=== PATIENT | male | born 1980 | race Caucasian/White ===

== ENCOUNTER 2016-11-19 19:00 | Inpatient (IN) | payer OTHER ==
[2016-11-19 19:17] VITALS: BMI 21.2
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
[2016-11-19] MEDS ORDERED: NICOTINE POLACRILEX 2 MG GUM BC PRN (21:04)
[2016-11-19] MEDS ORDERED: ACETAMINOPHEN 325 MG TABLET (FP) PO PRN (21:04)
[2016-11-19] MEDS ORDERED: diphenhydrAMINE HCL 50 MG CAPSULE PO PRN (21:04)
[2016-11-19] MEDS ORDERED: guaiFENesin/D-METHORPHAN HB 10 ML UNIT-DOSE CUPS PO PRN (21:04)
[2016-11-19] MEDS ORDERED: MENTHOL/PHENOL 1 EACH UD MM PRN (21:04)
[2016-11-19] MEDS ORDERED: MAGNESIUM CITRATE 300 ML BOTTLE PO PRN (21:04)
[2016-11-19] MEDS ORDERED: LOPERAMIDE HCL 2 MG CAPSULE PO PRN (21:04)
[2016-11-19] MEDS ORDERED: MAGNESIUM HYDROX 2400MG/30ML ORAL SUSPENSION 30 ML CUP PO PRN (21:04)
[2016-11-19] MEDS ORDERED: CYCLOBENZAPRINE HCL 10 MG TABLET (FP) PO PRN (21:09)
[2016-11-19] MEDS ORDERED: BACITRACIN 0.9 GM PACKET TP ONE (21:09)
[2016-11-19] MEDS ORDERED: TUBERCULIN PPD 5 TU/0.1ML VIAL ID ONE (22:35)
[2016-11-19] MEDS: RANITIDINE HCL 150 MG TABLET (FP) PO SCH (22:37)
[2016-11-19] MEDS: THIAMINE HCL 100 MG TABLET (FP) PO SCH (22:37)
[2016-11-19 23:37] LABS: URINE APPEARANCE CLEAR; URINE BILIRUBIN NEGATIVE (NEGATIVE); URINE BLOOD NEGATIVE (NEGATIVE); URINE COLOR LTYELLOW; URINE GLUCOSE (UA) NEGATIVE (NEGATIVE); URINE KETONE NEGATIVE (NEGATIVE); URINE LEUK ESTERASE NEGATIVE (NEGATIVE); URINE NITRITE NEGATIVE (NEGATIVE); URINE PROTEIN NEGATIVE (NEGATIVE); URINE UROBILINOGEN NEGATIVE E.U./dl (0.2-1.0)
[2016-11-20] MEDS ORDERED: METHADONE HCL 10 MG TABLET PO SCH (07:30)
[2016-11-20] MEDS ORDERED: METHADONE HCL 5 MG TABLET ONE (09:26)
[2016-11-20] MEDS ORDERED: METHADONE HCL 40 MG DISPERSABLE TABLET ONE (09:26)
[2016-11-20] MEDS: METHADONE 40 MG, METHADONE 15 MG PO SCH (09:27)
[2016-11-20] MEDS: NICOTINE 21 MG/24 HOURS TOPICAL PATCH TD SCH ×2 (10:59)
[2016-11-20] MEDS: LIDOCAINE 5% TOPICAL PATCH TP SCH ×2 (10:59)
[2016-11-20] MEDS: RANITIDINE HCL 150 MG TABLET (FP) PO SCH ×3 (10:59→21:42)
[2016-11-20] MEDS: PRENATAL VITAMINS W/ FOLIC ACID TABLET (FP) PO SCH ×2 (10:59)
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
[2016-11-20] MEDS ORDERED: GABAPENTIN 100 MG CAPSULE (FP) PO ONE (11:45)
[2016-11-20 13:31] LABS: MCH 32.7 pg (25.7-33.7); MCHC 33.4 g/dl (32.0-35.9); MEAN CELL VOLUME 97.9 fl (80-96); PLATELET COUNT 161 K/MM3 (134-434); RDW 13.1 % (11.9-15.9); WHITE BLOOD COUNT 3.3 K/mm3 (4.0-10.0)
[2016-11-20 14:05] LABS: ALBUMIN 3.7 g/dl (3.4-5.0); ALK PHOS 65 U/L (45-117); ANION GAP 9 (8-16); BILIRUBIN,TOTAL 0.1 mg/dL (0.2-1.0); CALCIUM 9.1 mg/dL (8.5-10.1); CO2 29 mmol/L (21-32); GLUCOSE,RANDOM 57 mg/dL (74-106); SGOT/AST 14 U/L (15-37); SGPT/ALT 17 U/L (12-78); TOT PROT 7.2 g/dl (6.4-8.2)
[2016-11-20] MEDS: GABAPENTIN 300 MG CAPSULE (FP) PO SCH ×2 (14:18→21:42)
[2016-11-20] MEDS: risperiDONE 1 MG TABLET (FP) PO SCH (21:42)
[2016-11-20] MEDS: THIAMINE HCL 100 MG TABLET (FP) PO SCH (21:42)
[2016-11-20] MEDS: traZODone HCL 50 MG TABLET (FP) PO SCH (21:42)
[2016-11-21] MEDS ORDERED: METHADONE HCL 40 MG DISPERSABLE TABLET ONE (03:10)
[2016-11-21] MEDS ORDERED: METHADONE HCL 5 MG TABLET ONE (03:10)
[2016-11-21] MEDS: METHADONE 40 MG, METHADONE 15 MG PO SCH (06:44)
[2016-11-21] MEDS: GABAPENTIN 300 MG CAPSULE (FP) PO SCH ×3 (06:44→21:40)
[2016-11-21] MEDS: LIDOCAINE 5% TOPICAL PATCH TP SCH (09:30)
[2016-11-21] MEDS: risperiDONE 1 MG TABLET (FP) PO SCH ×2 (09:31→21:40)
[2016-11-21] MEDS: RANITIDINE HCL 150 MG TABLET (FP) PO SCH ×2 (09:31→21:39)
[2016-11-21] MEDS: NICOTINE 21 MG/24 HOURS TOPICAL PATCH TD SCH (09:31)
[2016-11-21] MEDS: PRENATAL VITAMINS W/ FOLIC ACID TABLET (FP) PO SCH (09:32)
[2016-11-21] MEDS: MAG HYDROX/AL HYDROX/SIMETH 30 ML UNIT-DOSE CUP PO PRN (19:23)
[2016-11-21] MEDS: THIAMINE HCL 100 MG TABLET (FP) PO SCH (21:39)
[2016-11-21] MEDS: traZODone HCL 50 MG TABLET (FP) PO SCH (21:39)
[2016-11-22] MEDS ORDERED: METHADONE HCL 5 MG TABLET ONE (03:11)
[2016-11-22] MEDS ORDERED: METHADONE HCL 40 MG DISPERSABLE TABLET ONE (03:12)
[2016-11-22] MEDS: METHADONE 40 MG, METHADONE 15 MG PO SCH (06:45)
[2016-11-22] MEDS: GABAPENTIN 300 MG CAPSULE (FP) PO SCH ×3 (06:45→21:27)
[2016-11-22] MEDS: PRENATAL VITAMINS W/ FOLIC ACID TABLET (FP) PO SCH (09:52)
[2016-11-22] MEDS: risperiDONE 1 MG TABLET (FP) PO SCH ×2 (09:52→21:27)
[2016-11-22] MEDS: RANITIDINE HCL 150 MG TABLET (FP) PO SCH ×2 (09:52→21:27)
[2016-11-22] MEDS: NICOTINE 21 MG/24 HOURS TOPICAL PATCH TD SCH (09:52)
[2016-11-22] MEDS: LIDOCAINE 5% TOPICAL PATCH TP SCH (09:54)
[2016-11-22] MEDS: MAG HYDROX/AL HYDROX/SIMETH 30 ML UNIT-DOSE CUP PO PRN (19:00)
[2016-11-22] MEDS: THIAMINE HCL 100 MG TABLET (FP) PO SCH (21:26)
[2016-11-22] MEDS: traZODone HCL 50 MG TABLET (FP) PO SCH (21:27)
[2016-11-23] MEDS ORDERED: METHADONE HCL 5 MG TABLET ONE (05:41)
[2016-11-23] MEDS ORDERED: METHADONE HCL 40 MG DISPERSABLE TABLET ONE (05:42)
[2016-11-23] MEDS: GABAPENTIN 300 MG CAPSULE (FP) PO SCH ×3 (06:13→21:28)
[2016-11-23] MEDS: METHADONE 40 MG, METHADONE 15 MG PO SCH (06:13)
[2016-11-23] MEDS: risperiDONE 1 MG TABLET (FP) PO SCH ×2 (09:50→21:29)
[2016-11-23] MEDS: PRENATAL VITAMINS W/ FOLIC ACID TABLET (FP) PO SCH (09:50)
[2016-11-23] MEDS: RANITIDINE HCL 150 MG TABLET (FP) PO SCH ×2 (09:50→21:50)
[2016-11-23] MEDS: LIDOCAINE 5% TOPICAL PATCH TP SCH (09:50)
[2016-11-23] MEDS: NICOTINE 21 MG/24 HOURS TOPICAL PATCH TD SCH (09:50)
--- NOTE | 2016-11-23 14:12 | EKG ---
Test Reason : Blood Pressure : / mmHG Vent. Rate : 050 BPM Atrial Rate : 050 BPM P-R Int : 140 ms QRS Dur : 106 ms QT Int : 464 ms P-R-T Axes : 061 074 060 degrees QTc Int : 423 ms SINUS BRADYCARDIA OTHERWISE NORMAL ECG NO PREVIOUS ECGS AVAILABLE Confirmed by ZENA FISHER MD ([id number]) on 11/23/2016 2:11:46 PM Referred By: Confirmed By:ZENA FISHER MD
[2016-11-23] MEDS: traZODone HCL 50 MG TABLET (FP) PO SCH (21:28)
[2016-11-23] MEDS: THIAMINE HCL 100 MG TABLET (FP) PO SCH (21:28)
[2016-11-24] MEDS ORDERED: METHADONE HCL 40 MG DISPERSABLE TABLET ONE (03:08)
[2016-11-24] MEDS ORDERED: METHADONE HCL 5 MG TABLET ONE (03:08)
[2016-11-24] MEDS: METHADONE 40 MG, METHADONE 15 MG PO SCH (06:08)
[2016-11-24] MEDS: GABAPENTIN 300 MG CAPSULE (FP) PO SCH ×3 (06:08→21:31)
[2016-11-24] MEDS: PRENATAL VITAMINS W/ FOLIC ACID TABLET (FP) PO SCH (09:46)
[2016-11-24] MEDS: NICOTINE 21 MG/24 HOURS TOPICAL PATCH TD SCH (09:46)
[2016-11-24] MEDS: LIDOCAINE 5% TOPICAL PATCH TP SCH (09:46)
[2016-11-24] MEDS: RANITIDINE HCL 150 MG TABLET (FP) PO SCH ×2 (09:46→21:31)
[2016-11-24] MEDS: risperiDONE 1 MG TABLET (FP) PO SCH ×2 (09:47→21:31)
--- NOTE | 2016-11-24 15:23 | PN ---
Psychiatric Progress Note Vital Signs: Vital Signs Period Temp Pulse Resp BP Sys/Wilkinson Pulse Ox Last 24 Hr 98.2 F 70 18-18 116/72 Date of Session: 11/24/16 Chief Complaint:: "sedation" HPI: Patient is addressing opioid, cocaine, nicotine and alcohol comomrbid persistent mood disorder ROS: WNL Current Medications: Active Medications Generic Name Dose Route Start Last Admin Trade Name Freq PRN Reason Stop Dose Admin Acetaminophen 650 mg 11/19/16 21:04 11/21/16 13:12 Tylenol - PO 650 mg Q4H PRN Administration PAIN Al Hydroxide/Mg Hydroxide 30 ml 11/19/16 21:04 11/22/16 19:00 Mylanta Oral Suspension - PO 30 ml Q6H PRN Administration DYSPEPSIA Bupropion HCl 150 mg 11/21/16 10:00 11/24/16 09:47 Wellbutrin Xl - PO Not Given DAILY SKYE Cyclobenzaprine HCl 10 mg 11/19/16 21:09 Flexeril - PO TID PRN MUSCLE SPASMS Diphenhydramine HCl 50 mg 11/19/16 21:04 11/19/16 22:37 Benadryl - PO 50 mg HSMR1 PRN Administration INSOMNIA Eucalyptus/Menthol/Phenol/Sorbitol 1 each 11/19/16 21:04 Cepastat Lozenge - MM Q4H PRN SORE THROAT Gabapentin 300 mg 11/20/16 14:00 11/24/16 14:12 Neurontin - PO Not Given TID SKYE Guaifenesin 10 ml 11/19/16 21:04 Robitussin Dm - PO Q6H PRN COUGH Ibuprofen 400 mg 11/19/16 21:04 Motrin - PO Q6H PRN SEVERE PAIN Lidocaine 1 patch 11/20/16 10:00 11/24/16 09:46 Lidoderm Patch - TP 1 patch DAILY SKEY Administration Loperamide HCl 4 mg 11/19/16 21:04 Imodium - PO Q6H PRN DIARRHEA Magnesium Citrate 300 ml 11/19/16 21:04 Citroma - PO Q48H PRN CONSTIPATION Magnesium Hydroxide 30 ml 11/19/16 21:04 Milk Of Magnesia - PO DAILY PRN CONSTIPATION Methadone HCl 40 mg/ Methadone 55 mg 11/20/16 07:45 11/24/16 06:08 HCl 15 mg PO 55 mg DAILY@0600 SKYE Administration Nicotine 21 mg 11/20/16 10:00 11/24/16 09:46 Nicoderm Patch - TD 21 mg DAILY SKYE Administration Nicotine Polacrilex 2 mg 11/19/16 21:04 Nicorette Gum - BC Q2H PRN NICOTINE REPLACEMENT RX Multivit/Folic Acid/Iron 1 tab 11/20/16 10:00 11/24/16 09:46 Vitamins ([facility]) - PO 1 tab DAILY SKYE Administration Pseudoephedrine/Triprolidine 1 combo 11/19/16 21:04 Actifed - PO TID PRN NASAL CONGESTION Ranitidine HCl 150 mg 11/19/16 22:00 11/24/16 09:46 Zantac - PO 150 mg BID SKYE Administration Risperidone 1 mg 11/24/16 22:00 Risperdal - PO HS SKYE Thiamine HCl 100 mg 11/19/16 22:00 11/23/16 21:28 Vitamin B1 - PO 100 mg HS SKYE Administration Trazodone HCl 50 mg 11/20/16 22:00 11/23/16 21:28 Desyrel - PO 50 mg HS SKYE Administration Medication(s) Change(s): decrease Risperdal 1 mg po hs, continue the rest. Current Side Effect: No Lab tests ordered: No Lab tests reviewed: Yes Provider note:: As was reported y medical staff patient refusing Neurontin, patient was seen and explored the reasons for rejecting meds, reports that he was taking Gabapentin and does not want Neurontin, educated patient that Neurontin and Gabapentin the same meds he agreed to continue, he also reports he feels sedated after am Risperdal, will d/c am and continue pm, monitor progress as needed. Total face to face time:: 35 Mental Status Exam - Mental Status Exam Alert and Oriented to: Time, Place, Person Cognitive Function: Grossly Intact Patient Appearance: Well Groomed Mood: Sad Affect: Appropriate, Mood Congruent Patient Behavior: Appropriate, Cooperative Speech Pattern: Clear, Appropriate Voice Loudness: Normal Thought Process: Intact, Goal Oriented Thought Disorder: Not Present Hallucinations: Denies Suicidal Ideation: Denies Homicidal Ideation: Denies Insight/Judgement: Fair Sleep: Fair Appetite: Fair Muscle strength/Tone: Normal Gait/Station: Normal Psychiatric Treatment Plan - Problem List (1) Methadone maintenance therapy patient Current Visit: Yes Comment: 55 mg verification pending (2) Nicotine dependence Current Visit: Yes Qualifiers: Nicotine product type: cigarettes Substance use status: in withdrawal Qualified Code(s): F17.213 - Nicotine dependence, cigarettes, with withdrawal (3) Cocaine dependence Current Visit: Yes (4) Opioid dependence Current Visit: Yes (5) Persistent mood [affective] disorder, unspecified Current Visit: Yes
[2016-11-24] MEDS: traZODone HCL 50 MG TABLET (FP) PO SCH (21:31)
[2016-11-24] MEDS: THIAMINE HCL 100 MG TABLET (FP) PO SCH (21:31)
[2016-11-25] MEDS ORDERED: METHADONE HCL 5 MG TABLET ONE (05:38)
[2016-11-25] MEDS ORDERED: METHADONE HCL 40 MG DISPERSABLE TABLET ONE (05:39)
[2016-11-25] MEDS: GABAPENTIN 300 MG CAPSULE (FP) PO SCH ×3 (06:15→21:19)
[2016-11-25] MEDS: METHADONE 40 MG, METHADONE 15 MG PO SCH (06:15)
[2016-11-25] MEDS: NICOTINE 21 MG/24 HOURS TOPICAL PATCH TD SCH (09:53)
[2016-11-25] MEDS: LIDOCAINE 5% TOPICAL PATCH TP SCH (09:53)
[2016-11-25] MEDS: PRENATAL VITAMINS W/ FOLIC ACID TABLET (FP) PO SCH (09:53)
[2016-11-25] MEDS: RANITIDINE HCL 150 MG TABLET (FP) PO SCH ×2 (09:53→21:19)
[2016-11-25] MEDS: P-EPHED 60MG/TRIPROLIDI 2.5MG TABLET PO PRN (09:55)
[2016-11-25] MEDS: MAG HYDROX/AL HYDROX/SIMETH 30 ML UNIT-DOSE CUP PO PRN (20:51)
[2016-11-25] MEDS: traZODone HCL 50 MG TABLET (FP) PO SCH (21:19)
[2016-11-25] MEDS: risperiDONE 1 MG TABLET (FP) PO SCH (21:19)
[2016-11-25] MEDS: THIAMINE HCL 100 MG TABLET (FP) PO SCH (21:19)
[2016-11-26] MEDS ORDERED: METHADONE HCL 40 MG DISPERSABLE TABLET ONE (03:16)
[2016-11-26] MEDS ORDERED: METHADONE HCL 10 MG TABLET ONE (03:16)
[2016-11-26] MEDS ORDERED: METHADONE HCL 10 MG TABLET PO SCH (06:00)
[2016-11-26] MEDS: GABAPENTIN 300 MG CAPSULE (FP) PO SCH ×3 (06:11→21:31)
[2016-11-26] MEDS: METHADONE 40 MG, METHADONE 10 MG PO SCH (06:11)
[2016-11-26] MEDS: LIDOCAINE 5% TOPICAL PATCH TP SCH (09:22)
[2016-11-26] MEDS: RANITIDINE HCL 150 MG TABLET (FP) PO SCH ×2 (09:22→21:31)
[2016-11-26] MEDS: PRENATAL VITAMINS W/ FOLIC ACID TABLET (FP) PO SCH (09:22)
[2016-11-26] MEDS: NICOTINE 21 MG/24 HOURS TOPICAL PATCH TD SCH (09:22)
[2016-11-26] MEDS: traZODone HCL 50 MG TABLET (FP) PO SCH (21:31)
[2016-11-26] MEDS: risperiDONE 1 MG TABLET (FP) PO SCH (21:31)
[2016-11-26] MEDS: THIAMINE HCL 100 MG TABLET (FP) PO SCH (21:31)
[2016-11-26] MEDS: IBUPROFEN 400 MG TABLET (FP) PO PRN (21:55)
[2016-11-27] MEDS ORDERED: METHADONE HCL 40 MG DISPERSABLE TABLET ONE (04:36)
[2016-11-27] MEDS ORDERED: METHADONE HCL 10 MG TABLET ONE (04:37)
[2016-11-27] MEDS: METHADONE 40 MG, METHADONE 10 MG PO SCH (06:12)
[2016-11-27] MEDS: GABAPENTIN 300 MG CAPSULE (FP) PO SCH ×3 (06:12→21:15)
[2016-11-27] MEDS: LIDOCAINE 5% TOPICAL PATCH TP SCH (09:31)
[2016-11-27] MEDS: PRENATAL VITAMINS W/ FOLIC ACID TABLET (FP) PO SCH (09:31)
[2016-11-27] MEDS: RANITIDINE HCL 150 MG TABLET (FP) PO SCH ×2 (09:31→21:15)
[2016-11-27] MEDS: NICOTINE 21 MG/24 HOURS TOPICAL PATCH TD SCH (09:32)
[2016-11-27] MEDS: P-EPHED 60MG/TRIPROLIDI 2.5MG TABLET PO PRN (09:33)
[2016-11-27] MEDS: IBUPROFEN 400 MG TABLET (FP) PO PRN (20:06)
[2016-11-27] MEDS: traZODone HCL 50 MG TABLET (FP) PO SCH (21:15)
[2016-11-27] MEDS: risperiDONE 1 MG TABLET (FP) PO SCH (21:15)
[2016-11-27] MEDS: THIAMINE HCL 100 MG TABLET (FP) PO SCH (21:15)
[2016-11-28] MEDS ORDERED: METHADONE HCL 40 MG DISPERSABLE TABLET ONE (03:21)
[2016-11-28] MEDS ORDERED: METHADONE HCL 10 MG TABLET ONE (03:21)
[2016-11-28] MEDS: METHADONE 40 MG, METHADONE 10 MG PO SCH (06:07)
[2016-11-28] MEDS: GABAPENTIN 300 MG CAPSULE (FP) PO SCH ×3 (06:09→21:30)
[2016-11-28] MEDS: NICOTINE 21 MG/24 HOURS TOPICAL PATCH TD SCH (09:35)
[2016-11-28] MEDS: PRENATAL VITAMINS W/ FOLIC ACID TABLET (FP) PO SCH (09:35)
[2016-11-28] MEDS: RANITIDINE HCL 150 MG TABLET (FP) PO SCH ×2 (09:35→21:30)
[2016-11-28] MEDS: LIDOCAINE 5% TOPICAL PATCH TP SCH (09:36)
[2016-11-28] MEDS: MAG HYDROX/AL HYDROX/SIMETH 30 ML UNIT-DOSE CUP PO PRN (20:42)
[2016-11-28] MEDS: traZODone HCL 50 MG TABLET (FP) PO SCH (21:30)
[2016-11-28] MEDS: THIAMINE HCL 100 MG TABLET (FP) PO SCH (21:30)
[2016-11-28] MEDS: risperiDONE 1 MG TABLET (FP) PO SCH (21:30)
[2016-11-29] MEDS ORDERED: METHADONE HCL 10 MG TABLET ONE (03:33)
[2016-11-29] MEDS ORDERED: METHADONE HCL 40 MG DISPERSABLE TABLET ONE (03:33)
[2016-11-29] MEDS: MAG HYDROX/AL HYDROX/SIMETH 30 ML UNIT-DOSE CUP PO PRN ×2 (06:03→23:34)
[2016-11-29] MEDS: METHADONE 40 MG, METHADONE 10 MG PO SCH (06:03)
[2016-11-29] MEDS: GABAPENTIN 300 MG CAPSULE (FP) PO SCH ×3 (06:03→21:32)
[2016-11-29] MEDS ORDERED: PANTOPRAZOLE 40 MG TABLET (FP) PO ONE (07:07)
[2016-11-29] MEDS ORDERED: LOPERAMIDE HCL 2 MG CAPSULE PO ONE (07:08)
--- NOTE | 2016-11-29 07:20 | PN ---
[facility] Progress Note Note: ASKED TO SEE PT FOR C/O DIARRHEA NOT RELIEVED BY 1 DOSE OF IMODIUM. CLIENT C/O DIARRHEA SI8NCE OVER NIGHT. C/O WATERY DIARRHEA ATLEAST 8 EPISODES OVERNIGHT. REPORTS H/O GASTRITIS WELL NOT RELIEVED BY MYLANTA/ OR ZANTAC. DENIES N/V, FEVER, CHILLS, SOB OR RECENT SICK CONTACTS OR TRAVEL. SEEN LYING IN BED IN MILD DISTRESS A/O X3 ABD- SOFT NT BS X4 HYPERACTIVE Vital Signs Temperature 98.1 F 11/29/16 06:57 Pulse Rate 78 11/29/16 06:57 Respiratory Rate 18 11/29/16 06:57 Blood Pressure 111/68 11/29/16 06:57 O2 Sat by Pulse Oximetry (%) A- DIARRHEA P- STAT DOSE IMODIUM 2 MG NOW C/W WITH IMODIUM ORDERED D/C ZANTAC PROTONIX 40 MG PO NOW THEN DAILY STOOL CX/ O&P CONT TO MONITOR FOR WORSENING/ UNRESOLVED SX'S BRAT DIET
[2016-11-29] MEDS: PRENATAL VITAMINS W/ FOLIC ACID TABLET (FP) PO SCH (09:33)
[2016-11-29] MEDS: LIDOCAINE 5% TOPICAL PATCH TP SCH (09:34)
[2016-11-29] MEDS: NICOTINE 21 MG/24 HOURS TOPICAL PATCH TD SCH (09:35)
[2016-11-29] MEDS: THIAMINE HCL 100 MG TABLET (FP) PO SCH (21:32)
[2016-11-29] MEDS: risperiDONE 1 MG TABLET (FP) PO SCH (21:32)
[2016-11-29] MEDS: traZODone HCL 50 MG TABLET (FP) PO SCH (21:32)
[2016-11-30] MEDS ORDERED: METHADONE HCL 10 MG TABLET ONE (03:14)
[2016-11-30] MEDS ORDERED: METHADONE HCL 40 MG DISPERSABLE TABLET ONE (03:14)
[2016-11-30] MEDS: METHADONE 40 MG, METHADONE 10 MG PO SCH (06:13)
[2016-11-30] MEDS: GABAPENTIN 300 MG CAPSULE (FP) PO SCH ×3 (06:14→21:48)
[2016-11-30] MEDS: PRENATAL VITAMINS W/ FOLIC ACID TABLET (FP) PO SCH (09:28)
[2016-11-30] MEDS: PANTOPRAZOLE 40 MG TABLET (FP) PO SCH (09:28)
[2016-11-30] MEDS: NICOTINE 21 MG/24 HOURS TOPICAL PATCH TD SCH (09:29)
[2016-11-30] MEDS: LIDOCAINE 5% TOPICAL PATCH TP SCH (09:29)
[2016-11-30] MEDS: traZODone HCL 50 MG TABLET (FP) PO SCH (21:48)
[2016-11-30] MEDS: risperiDONE 1 MG TABLET (FP) PO SCH (21:48)
[2016-11-30] MEDS: THIAMINE HCL 100 MG TABLET (FP) PO SCH (21:48)
[2016-12-01] MEDS ORDERED: METHADONE HCL 10 MG TABLET ONE (03:11)
[2016-12-01] MEDS ORDERED: METHADONE HCL 40 MG DISPERSABLE TABLET ONE (03:11)
[2016-12-01] MEDS: METHADONE 40 MG, METHADONE 10 MG PO SCH (06:13)
[2016-12-01] MEDS: GABAPENTIN 300 MG CAPSULE (FP) PO SCH (06:14)
[2016-12-01 06:50] VITALS: BP 128/81; PULSE 66; TEMP 98.1
--- NOTE | 2016-12-01 08:08 | PN ---
Psychiatric Progress Note Vital Signs: Vital Signs Period Temp Pulse Resp BP Sys/Wilkinson Pulse Ox Last 24 Hr 98.1 F 66 16-18 128/81 Date of Session: 12/01/16 Chief Complaint:: discharge visit HPI: Patient is addressing opioid, cocaine, nicotine and alcohol comomrbid persistent mood disorder ROS: WNL Current Medications: Active Medications Generic Name Dose Route Start Last Admin Trade Name Freq PRN Reason Stop Dose Admin Acetaminophen 650 mg 11/19/16 21:04 11/21/16 13:12 Tylenol - PO 650 mg Q4H PRN Administration PAIN Al Hydroxide/Mg Hydroxide 30 ml 11/19/16 21:04 11/29/16 23:34 Mylanta Oral Suspension - PO 30 ml Q6H PRN Administration DYSPEPSIA Bupropion HCl 150 mg 11/21/16 10:00 11/30/16 09:29 Wellbutrin Xl - PO 150 mg DAILY SKYE Administration Cyclobenzaprine HCl 10 mg 11/19/16 21:09 Flexeril - PO TID PRN MUSCLE SPASMS Diphenhydramine HCl 50 mg 11/19/16 21:04 11/19/16 22:37 Benadryl - PO 50 mg HSMR1 PRN Administration INSOMNIA Eucalyptus/Menthol/Phenol/Sorbitol 1 each 11/19/16 21:04 Cepastat Lozenge - MM Q4H PRN SORE THROAT Gabapentin 300 mg 11/20/16 14:00 12/01/16 06:14 Neurontin - PO 300 mg TID SKYE Administration Guaifenesin 10 ml 11/19/16 21:04 Robitussin Dm - PO Q6H PRN COUGH Ibuprofen 400 mg 11/19/16 21:04 11/27/16 20:06 Motrin - PO 400 mg Q6H PRN Administration SEVERE PAIN Lidocaine 1 patch 11/20/16 10:00 11/30/16 09:29 Lidoderm Patch - TP 1 patch DAILY SKYE Administration Loperamide HCl 4 mg 11/19/16 21:04 11/29/16 03:31 Imodium - PO 4 mg Q6H PRN Administration DIARRHEA Magnesium Citrate 300 ml 11/19/16 21:04 Citroma - PO Q48H PRN CONSTIPATION Magnesium Hydroxide 30 ml 11/19/16 21:04 Milk Of Magnesia - PO DAILY PRN CONSTIPATION Methadone HCl 40 mg/ Methadone 50 mg 11/26/16 06:00 12/01/16 06:13 HCl 10 mg PO 12/02/16 05:59 50 mg DAILY@0600 SKYE Administration Nicotine 21 mg 11/20/16 10:00 11/30/16 09:29 Nicoderm Patch - TD 21 mg DAILY SKYE Administration Nicotine Polacrilex 2 mg 11/19/16 21:04 Nicorette Gum - BC Q2H PRN NICOTINE REPLACEMENT RX Pantoprazole Sodium 40 mg 11/30/16 10:00 11/30/16 09:28 Protonix - PO 40 mg DAILY SKYE Administration Multivit/Folic Acid/Iron 1 tab 11/20/16 10:00 11/30/16 09:28 Vitamins (Sjr) - PO 1 tab DAILY SKYE Administration Pseudoephedrine/Triprolidine 1 combo 11/19/16 21:04 11/27/16 09:33 Actifed - PO 1 combo TID PRN Administration NASAL CONGESTION Risperidone 1 mg 11/24/16 22:00 11/30/16 21:48 Risperdal - PO 1 mg HS SKYE Administration Thiamine HCl 100 mg 11/19/16 22:00 11/30/16 21:48 Vitamin B1 - PO 100 mg HS SKYE Administration Trazodone HCl 50 mg 11/20/16 22:00 11/30/16 21:48 Desyrel - PO 50 mg HS SKYE Administration Current Side Effect: No Lab tests ordered: No Lab tests reviewed: Yes Provider note:: Patient has completed today his treatment and met his identified goals, will continue to address his issues at [facility]. PAtient focused on insights he gained in this treatments, ways to utilize supports and importance of changing attitude/behavio and using coping skills to prevent relapses. Medications were adjusted during his treatment, patient feels better in terms of mood stbilizations, sleep improvement and anxiety reduction. Scripts provided for 3 days, he is stable for discharge. Total face to face time:: 35 Mental Status Exam - Mental Status Exam Alert and Oriented to: Time, Place, Person Cognitive Function: Good Patient Appearance: Well Groomed Mood: Hopeful Affect: Appropriate, Mood Congruent Patient Behavior: Appropriate, Cooperative Speech Pattern: Appropriate Voice Loudness: Normal Thought Process: Goal Oriented Thought Disorder: Not Present Hallucinations: Denies Suicidal Ideation: Denies Homicidal Ideation: Denies Insight/Judgement: Fair Sleep: Fair Appetite: Fair Muscle strength/Tone: Normal Gait/Station: Normal Psychiatric Treatment Plan - Problem List (1) Methadone maintenance therapy patient Current Visit: Yes Comment: 55 mg verification pending (2) Nicotine dependence Current Visit: Yes Qualifiers: Nicotine product type: cigarettes Substance use status: in withdrawal Qualified Code(s): F17.213 - Nicotine dependence, cigarettes, with withdrawal (3) Cocaine dependence Current Visit: Yes (4) Opioid dependence Current Visit: Yes (5) Persistent mood [affective] disorder, unspecified Current Visit: Yes
[2016-12-01] MEDS: PRENATAL VITAMINS W/ FOLIC ACID TABLET (FP) PO SCH (09:41)
[2016-12-01] MEDS: PANTOPRAZOLE 40 MG TABLET (FP) PO SCH (09:41)
[2016-12-01] MEDS: NICOTINE 21 MG/24 HOURS TOPICAL PATCH TD SCH (09:41)
[2016-12-01] MEDS: LIDOCAINE 5% TOPICAL PATCH TP SCH (09:43)
== END 2016-12-01 10:11 | disposition home or self-care (01) | DRG 772 ==
LOC: YASAS 19:00 → Y5N 20:09
PROVIDERS: ADMIT Psychiatry & Neurology Psychiatry; ATTEND Psychiatry & Neurology Psychiatry
PROC: HZ42ZZZ Group Counseling for Substance Abuse Treatment, Cognitive-Behavioral (ICD-10-PCS; principal; 2016-12-01)
DX: F11.20 Opioid dependence, uncomplicated (principal); F14.20 Cocaine dependence, uncomplicated; F17.213 Nicotine dependence, cigarettes, with withdrawal; K21.9 Gastro-esophageal reflux disease without esophagitis; M54.5 Low back pain; G89.29 Other chronic pain; R63.4 Abnormal weight loss; Z68.21 Body mass index [BMI] 21.0-21.9, adult; F34.9 Persistent mood [affective] disorder, unspecified
CPT/HCPCS: 36415; 80053; 81003; 85027; 86593; 93005; 93010; J2794

== ENCOUNTER 2018-11-11 16:16 | Inpatient (IN) | payer OTHER ==
[2018-11-11 17:04] VITALS: BMI 18.8
--- NOTE | 2018-11-11 21:54 | HP ---
CIWA Score Nausea/Vomitin-No Nausea/No Vomiting Muscle Tremors: 4-Moderate,w/Arms Extend Anxiety: 3 Agitation: 3 Paroxysmal Sweats: 3 (Increased facial sweating.) Orientation: 0-Oriented Tacttile Disturbances: 0-None Auditory Disturbances: 0-None Visual Disturbances: 0-None Headache: 0-None Present CIWA-Ar Total Score: 13 - Admission Criteria OASAS Guidelines: Admission for Medically Managed Detox: Requires at least one of the followin. CIWA greater than 12 2. Seizures within the past 24 hours 3. Delirium tremens within the past 24 hours 4. Hallucinations within the past 24 hours 5. Acute intervention needed for co occurring medical disorder 6. Acute intervention needed for co occurring psychiatric disorder 7. Severe withdrawal that cannot be handled at a lower level of care (continued vomiting, continued diarrhea, abnormal vital signs) requiring intravenous medication and/or fluids 8. Patient presents the following: CIWA greater than 12 Admission Criteria Met: Admission criteria met Admission ROS [facility] Chief Complaint: Here for alcohol and Xanax withdrawal. Allergies/Adverse Reactions: Allergies Allergy/AdvReac Type Severity Reaction Status Date / Time No Known Allergies Allergy Verified 11/11/18 20:41 History of Present Illness: Here for detox; Alcohol use began at age 17. Opiate use began at age 34. Relapsing w/ IV heroin. Denies sharing needles or works. Cocaine use began at age 17. Nicotine use began at age 10. Marijuana use began at age Currently on Brian Davis MMTP on Methadone 35 mg PO Daily. x 2 years. Hx: Overdose x 3. Last in 2018. (Has a Narcan kit and does not use alone) Hx: Hepatitis C (untreated) Denies other significant PMH/PSH. Denies thoughts of harming self or others. Patient Name: Nino Hubbard Date: 1980 Address: [address] [facility] [address] [place] [address] Sex: Male Rx Written Rx Dispensed Drug Quantity Days Supply Prescriber Name 05/08/2018 05/08/2018 chlordiazepoxide 25 mg capsule 8 2 Chava Summers Patient Name: Nino Hubbard Date: 1980 Address: [address] [facility] [address] [place] [address] Sex: Male Rx Written Rx Dispensed Drug Quantity Days Supply Prescriber Name 10/28/2017 11/25/2017 endocet 10-325 mg tablet 45 14 Kev Bernard Exam Limitations: No Limitations - Ebola screening Have you traveled outside of the country in the last 21 days: No (N) Have you had contact with anyone from an Ebola affected area: No Have you been sick,other than usual withdrawal symptoms: No Do you have a fever: No - Review of Systems Constitutional: Diaphoresis, Changes in sleep (Difficulty falling asleep) EENT: reports: Nose Congestion Respiratory: reports: Shortness of Breath (r/t anxiety) Cardiac: reports: No Symptoms Reported GI: reports: Indigestion (Hx gastritis - 2006. Currently having acid reflux.), Other (c/o gas pain) : reports: No Symptoms Reported Musculoskeletal: reports: No Symptoms Reported Integumentary: reports: No Symptoms Reported Neuro: reports: Tingling (Tips of fingers) Endocrine: reports: No Symptoms Reported Hematology: reports: No Symptoms Reported Psychiatric: reports: Judgement Intact, Orientated x3, Agitated, Anxious, Depressed (Occassional depression. Denies thoughts of harming self or others.) Patient History - Patient Medical History Hx Anemia: No Hx Asthma: No Hx Chronic Obstructive Pulmonary Disease (COPD): No Hx Cancer: No Hx Cardiac Disorders: No Hx Congestive Heart Failure: No Hx Hypertension: No Hx Hypercholesterolemia: No Hx Pacemaker: No HX Cerebrovascular Accident: No Hx Seizures: No Hx Dementia: No Hx Diabetes: No Hx Gastrointestinal Disorders: Yes Hx Liver Disease: No Hx Genitourinary Disorders: No Hx Sexually Transmitted Disorders: Yes (Cylamdia) Hx Renal Disease (ESRD): No Hx Thyroid Disease: No Hx Human Immunodeficiency Virus (HIV): No Hx Hepatitis C: No Hx Depression: Yes Hx Suicide Attempt: No Hx Bipolar Disorder: No Hx Schizophrenia: No - Patient Surgical History Past Surgical History: Yes Hx Neurologic Surgery: No Hx Cataract Extraction: No Hx Cardiac Surgery: No Hx Lung Surgery: No Hx Breast Surgery: No Hx Breast Biopsy: No Hx Abdominal Surgery: No Hx Appendectomy: No Hx Cholecystectomy: No Hx Genitourinary Surgery: No Hx Orthopedic Surgery: Yes (left foot 2009) Anesthesia Reaction: No - PPD History Previous Implant?: Yes Documented Results: Negative w/proof Implanted On Prior R Admission?: Yes Date: 11/21/16 PPD to be Administered?: Yes - Smoking Cessation Smoking history: Current every day smoker Have you smoked in the past 12 months: Yes Aproximately how many cigarettes per day: 15 Cigars Per Day: 0 Hx Chewing Tobacco Use: No Initiated information on smoking cessation: Yes 'Breaking Loose' booklet given: 11/11/18 - Substance & Tx. History Hx Alcohol Use: Yes Hx Substance Use: Yes Substance Use Type: Alcohol, Cocaine, Heroin, Marijuana Hx Substance Use Treatment: Yes (detox, rehab. MMTP) - Substances Abused Alcohol Route: Oral Frequency: Daily Amount used: 6 BEERS Age of first use: 17 Date of Last Use: 11/11/18 Alprazolam (Xanax) Route: Oral Frequency: Daily Amount used: 2 2/MG Age of first use: 18 Date of Last Use: 11/11/18 Heroin Route: Injection Frequency: Daily Amount used: 2 GRAMS Age of first use: 34 Date of Last Use: 11/11/18 Cocaine Route: Smoking Frequency: Daily Amount used: 6 BAGS Age of first use: 17 Date of Last Use: 11/11/18 Marijuana/Hashish Route: Smoking Frequency: 3-6 times per week Amount used: $20 Age of first use: 14 Date of Last Use: 11/11/18 Admission Physical Exam S - Vital Signs Vital Signs: Vital Signs - 24 hr 11/11/18 17:01 Temperature 97.7 F Pulse Rate 59 L Respiratory 18 Rate Blood Pressure 113/72 - Physical General Appearance: Yes: Appropriately Dressed, Mild Distress, Tremorous, Irritable, Sweating, Anxious HEENTM: Yes: EOMI, Hearing grossly Normal, Normal ENT Inspection, Normocephalic , BRUNO (Pupils at 3 mm), Pharynx Normal, Nasal Congestion Respiratory: Yes: Lungs Clear, Normal Breath Sounds, No Respiratory Distress Neck: Yes: No masses,lesions,Nodules, Supple Breast: Yes: Breast Exam Deferred Cardiology: Yes: Regular Rhythm, Regular Rate, S1, S2 Abdominal: Yes: Non Tender, Increased Bowel Sounds Genitourinary: Yes: Within Normal Limits Back: Yes: Normal Inspection Musculoskeletal: Yes: full range of Motion, Gait Steady Extremities: Yes: Normal Capillary Refill, Normal Inspection, Normal Range of Motion, Non-Tender, Tremors (Moderate tremors of hands when arms elevated) Neurological: Yes: bioinformatics support specialist II-XII NML intact, Fully Oriented, Alert, Motor Strength 5/5, Normal Mood/Affect Integumentary: Yes: Normal Color, Dry, Warm, Track Dyer (Multiple old and new injection dyer/tracks on both arms.), Other ((R) upper arm w/ area of increased erythema and warmth w/ a 7 cm x 4 cm induration. Slight tender to touch.) Lymphatic: Yes: Within Normal Limits - Diagnostic (1) Sedative, hypnotic or anxiolytic dependence with withdrawal, uncomplicated Current Visit: Yes Status: Acute (2) Alcohol dependence with uncomplicated withdrawal Current Visit: Yes Status: Acute (3) GERD (gastroesophageal reflux disease) Current Visit: Yes Status: Chronic Qualifiers: Esophagitis presence: without esophagitis Qualified Code(s): K21.9 - Gastro -esophageal reflux disease without esophagitis (4) Weight loss Current Visit: Yes Status: Chronic (5) Cannabis dependence Current Visit: Yes Status: Chronic (6) Cocaine dependence Current Visit: Yes Status: Chronic Qualifiers: Substance use status: uncomplicated Qualified Code(s): F14.20 - Cocaine dependence, uncomplicated (7) Methadone maintenance therapy patient Current Visit: Yes Status: Chronic Comment: 35 mg verification pending (8) Nicotine dependence Current Visit: Yes Status: Chronic Qualifiers: Nicotine product type: cigarettes Substance use status: uncomplicated Qualified Code(s): F17.210 - Nicotine dependence, cigarettes, uncomplicated (9) Cellulitis Current Visit: Yes Status: Acute Qualifiers: Site of cellulitis: extremity Site of cellulitis of extremity: upper extremity Laterality: right Qualified Code(s): L03.113 - Cellulitis of right upper limb Cleared for Admission [facility] - Detox or Rehab [facility] Level of Care: Medically Managed Detox Regimen/Protocol: Librium [facility] Breath Alcohol Content Breath Alcohol Content: 0.075 Urine Drug Screen - Results Drug Screen Negative: Yes Urine Drug Screen Results: THC-Marijuana, NAS-Cocaine, OPI-Opiates, MTD- Methadone, FEN-Fentanyl
[2018-11-11] MEDS ORDERED: NICOTINE POLACRILEX 2 MG GUM BC PRN (22:53)
[2018-11-11] MEDS ORDERED: MAGNESIUM CITRATE 300 ML BOTTLE PO PRN (22:53)
[2018-11-11] MEDS ORDERED: MENTHOL/PHENOL 1 EACH UD MM PRN (22:53)
[2018-11-11] MEDS ORDERED: MAGNESIUM HYDROX 2400MG/30ML ORAL SUSPENSION 30 ML CUP PO PRN (22:53)
[2018-11-11] MEDS ORDERED: P-EPHED 60MG/TRIPROLIDI 2.5MG TABLET PO PRN (22:53)
[2018-11-11] MEDS ORDERED: IBUPROFEN 400 MG TABLET (FP) PO PRN (22:53)
[2018-11-11] MEDS ORDERED: LOPERAMIDE HCL 2 MG CAPSULE PO PRN (22:53)
[2018-11-11] MEDS ORDERED: ACETAMINOPHEN 325 MG TABLET (FP) PO PRN (22:53)
[2018-11-11] MEDS ORDERED: MAG HYDROX/AL HYDROX/SIMETH 30 ML UNIT-DOSE CUP PO PRN (22:53)
[2018-11-11] MEDS ORDERED: guaiFENesin 200 MG/10 ML 10 ML UNIT-DOSE CUPS PO PRN (22:57)
[2018-11-11] MEDS: chlordiazePOXIDE HCL 25 MG CAPSULE PO SCH (23:33)
[2018-11-11] MEDS: CEPHALEXIN MONOHYDRATE 500 MG CAPSULE (UD) PO SCH (23:34)
[2018-11-12] MEDS: chlordiazePOXIDE HCL 25 MG CAPSULE PO SCH ×4 (05:25→22:10)
[2018-11-12] MEDS: CEPHALEXIN MONOHYDRATE 500 MG CAPSULE (UD) PO SCH ×4 (05:25→23:10)
[2018-11-12] MEDS ORDERED: METHADONE HCL 10 MG TABLET PO SCH (09:15)
[2018-11-12] MEDS: PRENATAL VITAMINS W/ FOLIC ACID TABLET (FP) PO SCH (10:16)
[2018-11-12] MEDS: NICOTINE 14 MG/24 HOURS TOPICAL PATCH TD SCH (10:17)
[2018-11-12] MEDS: PANTOPRAZOLE 20 MG TABLET (FP) PO SCH (10:17)
[2018-11-12] MEDS ORDERED: METHADONE HCL 10 MG TABLET ONE (10:41)
[2018-11-12] MEDS ORDERED: METHADONE HCL 5 MG TABLET ONE (10:42)
[2018-11-12 11:03] LABS: HEMATOCRIT 36.4 % (35.4-49); HEMOGLOBIN 12.5 GM/dL (11.7-16.9); MCHC 34.5 g/dl (32.0-35.9); MEAN CELL VOLUME 98.5 fl (80-96); MEAN PLT VOLUME 8.6 fl (7.5-11.1); PLATELET COUNT 153 K/MM3 (134-434); RBC 3.69 M/mm3 (4.00-5.60); RDW 13.1 % (11.9-15.9); WHITE BLOOD COUNT 3.9 K/mm3 (4.0-10.0)
[2018-11-12 11:26] LABS: ALBUMIN 3.2 g/dl (3.4-5.0); ALK PHOS 88 U/L (45-117); ANION GAP 4 MMOL/L (8-16); BILIRUBIN,TOTAL 0.3 mg/dL (0.2-1); BLOOD UREA NITROGEN 17 mg/dL (7-18); CALCIUM 8.5 mg/dL (8.5-10.1); CHLORIDE 106 mmol/L (98-107); CO2 29 mmol/L (21-32); GLUCOSE,RANDOM 78 mg/dL (74-106); POTASSIUM 4.2 mmol/L (3.5-5.1); SGOT/AST 87 U/L (15-37); SGPT/ALT 107 U/L (13-61); SODIUM 139 mmol/L (136-145)
[2018-11-12] MEDS: METHADONE 30 MG, METHADONE 5 MG PO SCH (11:48)
[2018-11-12] MEDS: MINERAL OIL/PETROLAT/WATER TOPICAL CREAM 113 GM JAR TP SCH ×2 (11:50→22:11)
--- NOTE | 2018-11-12 11:58 | PN ---
S CIWA - CIWA Score Nausea/Vomitin-Mild Nausea/No Vomiting Muscle Tremors: 3 Anxiety: 3 Agitation: 3 Paroxysmal Sweats: 1-Minimal Palms Moist Orientation: 0-Oriented Tacttile Disturbances: 1-Very Mild Itch/Numbness Auditory Disturbances: 0-None Visual Disturbances: 0-None Headache: 3-Moderate CIWA-Ar Total Score: 15 BHS Progress Note (SOAP) Subjective: body aches and pain, agitation and weakness Objective: 11/12/18 12:14 Patient is alert and oriented to person, place and time. No acute distress noted or reported Vital Signs Temperature 96.1 F L 11/12/18 09:24 Pulse Rate 61 11/12/18 09:24 Respiratory Rate 18 11/12/18 09:24 Blood Pressure 102/60 11/12/18 09:24 O2 Sat by Pulse Oximetry (%) Laboratory Last Values WBC 3.9 K/mm3 (4.0-10.0) L 11/12/18 07:50 RBC 3.69 M/mm3 (4.00-5.60) L 11/12/18 07:50 Hgb 12.5 GM/dL (11.7-16.9) 11/12/18 07:50 Hct 36.4 % (35.4-49) 11/12/18 07:50 MCV 98.5 fl (80-96) H 11/12/18 07:50 MCH 34.0 pg (25.7-33.7) H 11/12/18 07:50 MCHC 34.5 g/dl (32.0-35.9) 11/12/18 07:50 RDW 13.1 % (11.9-15.9) 11/12/18 07:50 Plt Count 153 K/MM3 (134-434) 11/12/18 07:50 MPV 8.6 fl (7.5-11.1) 11/12/18 07:50 Sodium 139 mmol/L (136-145) 11/12/18 07:50 Potassium 4.2 mmol/L (3.5-5.1) 11/12/18 07:50 Chloride 106 mmol/L (98-107) 11/12/18 07:50 Carbon Dioxide 29 mmol/L (21-32) 11/12/18 07:50 Anion Gap 4 MMOL/L (8-16) L 11/12/18 07:50 BUN 17 mg/dL (7-18) 11/12/18 07:50 Creatinine 1.0 mg/dL (0.55-1.3) 11/12/18 07:50 Creat Clearance w eGFR > 60 (>60) 11/12/18 07:50 Random Glucose 78 mg/dL (74-106) 11/12/18 07:50 Calcium 8.5 mg/dL (8.5-10.1) 11/12/18 07:50 Total Bilirubin 0.3 mg/dL (0.2-1) 11/12/18 07:50 AST 87 U/L (15-37) H 11/12/18 07:50 ALT 107 U/L (13-61) H 11/12/18 07:50 Alkaline Phosphatase 88 U/L (45-117) 11/12/18 07:50 Total Protein 7.0 g/dl (6.4-8.2) 11/12/18 07:50 Albumin 3.2 g/dl (3.4-5.0) L 11/12/18 07:50 Labs noted Assessment: Withdrawal symptoms Plan: Continue detox
--- NOTE | 2018-11-12 13:24 | EKG ---
Test Reason : Blood Pressure : / mmHG Vent. Rate : 059 BPM Atrial Rate : 059 BPM P-R Int : 134 ms QRS Dur : 110 ms QT Int : 452 ms P-R-T Axes : 071 073 061 degrees QTc Int : 447 ms SINUS BRADYCARDIA OTHERWISE NORMAL ECG WHEN COMPARED WITH ECG OF 19-NOV-2016 22:42, NO SIGNIFICANT CHANGE WAS FOUND Confirmed by BROOKS KELLY MD ([id number]) on 11/12/2018 1:23:51 PM Referred By: Confirmed By:BROOKS KELLY MD
[2018-11-12 16:29] LABS: URINE APPEARANCE CLEAR; URINE BILIRUBIN NEGATIVE (<2.0 mg/dL); URINE COLOR LTYELLOW; URINE GLUCOSE (UA) NEGATIVE (NEGATIVE); URINE KETONE NEGATIVE (NEGATIVE); URINE LEUK ESTERASE NEGATIVE (NEGATIVE); URINE NITRITE NEGATIVE (NEGATIVE); URINE PROTEIN NEGATIVE (NEGATIVE); URINE UROBILINOGEN NEGATIVE mg/dL (0.2-1.0)
[2018-11-12] MEDS: THIAMINE HCL 100 MG TABLET (FP) PO SCH (22:10)
[2018-11-12] MEDS: MELATONIN 5 MG TABLETS PO PRN (22:10)
[2018-11-12] MEDS ORDERED: chlordiazePOXIDE HCL 25 MG CAPSULE PO ONE (23:39)
[2018-11-13] MEDS ORDERED: METHADONE HCL 5 MG TABLET ONE ×2 (04:47→06:25)
[2018-11-13] MEDS ORDERED: METHADONE HCL 10 MG TABLET ONE ×2 (04:47→06:24)
[2018-11-13] MEDS: chlordiazePOXIDE HCL 25 MG CAPSULE PO SCH ×3 (06:27→17:28)
[2018-11-13] MEDS: METHADONE 30 MG, METHADONE 5 MG PO SCH (06:27)
[2018-11-13] MEDS: CEPHALEXIN MONOHYDRATE 500 MG CAPSULE (UD) PO SCH ×3 (07:11→17:28)
[2018-11-13] MEDS: NICOTINE 14 MG/24 HOURS TOPICAL PATCH TD SCH (10:08)
[2018-11-13] MEDS: MINERAL OIL/PETROLAT/WATER TOPICAL CREAM 113 GM JAR TP SCH ×2 (10:08→22:48)
[2018-11-13] MEDS: PANTOPRAZOLE 20 MG TABLET (FP) PO SCH (10:08)
[2018-11-13] MEDS: PRENATAL VITAMINS W/ FOLIC ACID TABLET (FP) PO SCH (10:08)
--- NOTE | 2018-11-13 12:01 | PN ---
S CIWA - CIWA Score Nausea/Vomitin-Mild Nausea/No Vomiting Muscle Tremors: 3 Anxiety: 2 Agitation: 3 Paroxysmal Sweats: 1-Minimal Palms Moist Orientation: 0-Oriented Tacttile Disturbances: 0-None Auditory Disturbances: 0-None Visual Disturbances: 0-None Headache: 1-Very Mild CIWA-Ar Total Score: 11 S Progress Note (SOAP) Subjective: tremor sweating restlessness headaches Objective: 11/13/18 12:03 Vital Signs Temperature 95.9 F L 11/13/18 09:10 Pulse Rate 53 L 11/13/18 09:10 Respiratory Rate 18 11/13/18 09:10 Blood Pressure 95/67 11/13/18 09:10 O2 Sat by Pulse Oximetry (%) Laboratory Last Values WBC 3.9 K/mm3 (4.0-10.0) L 11/12/18 07:50 RBC 3.69 M/mm3 (4.00-5.60) L 11/12/18 07:50 Hgb 12.5 GM/dL (11.7-16.9) 11/12/18 07:50 Hct 36.4 % (35.4-49) 11/12/18 07:50 MCV 98.5 fl (80-96) H 11/12/18 07:50 MCH 34.0 pg (25.7-33.7) H 11/12/18 07:50 MCHC 34.5 g/dl (32.0-35.9) 11/12/18 07:50 RDW 13.1 % (11.9-15.9) 11/12/18 07:50 Plt Count 153 K/MM3 (134-434) 11/12/18 07:50 MPV 8.6 fl (7.5-11.1) 11/12/18 07:50 Sodium 139 mmol/L (136-145) 11/12/18 07:50 Potassium 4.2 mmol/L (3.5-5.1) 11/12/18 07:50 Chloride 106 mmol/L (98-107) 11/12/18 07:50 Carbon Dioxide 29 mmol/L (21-32) 11/12/18 07:50 Anion Gap 4 MMOL/L (8-16) L 11/12/18 07:50 BUN 17 mg/dL (7-18) 11/12/18 07:50 Creatinine 1.0 mg/dL (0.55-1.3) 11/12/18 07:50 Creat Clearance w eGFR > 60 (>60) 11/12/18 07:50 Random Glucose 78 mg/dL (74-106) 11/12/18 07:50 Calcium 8.5 mg/dL (8.5-10.1) 11/12/18 07:50 Total Bilirubin 0.3 mg/dL (0.2-1) 11/12/18 07:50 AST 87 U/L (15-37) H 11/12/18 07:50 ALT 107 U/L (13-61) H 11/12/18 07:50 Alkaline Phosphatase 88 U/L (45-117) 11/12/18 07:50 Total Protein 7.0 g/dl (6.4-8.2) 11/12/18 07:50 Albumin 3.2 g/dl (3.4-5.0) L 11/12/18 07:50 Urine Color Ltyellow 11/12/18 14:24 Urine Appearance Clear 11/12/18 14:24 Urine pH 8.0 (5.0-8.0) D 11/12/18 14:24 Ur Specific [place] 1.011 (1.010-1.035) 11/12/18 14:24 Urine Protein Negative (NEGATIVE) 11/12/18 14:24 Urine Glucose (UA) Negative (NEGATIVE) 11/12/18 14:24 Urine Ketones Negative (NEGATIVE) 11/12/18 14:24 Urine Blood Negative (NEGATIVE) 11/12/18 14:24 Urine Nitrite Negative (NEGATIVE) 11/12/18 14:24 Urine Bilirubin Negative (<2.0 mg/dL) 11/12/18 14:24 Urine Urobilinogen Negative mg/dL (0.2-1.0) 11/12/18 14:24 Ur Leukocyte Esterase Negative (NEGATIVE) 11/12/18 14:24 RPR Titer Nonreactive (NONREACTIVE) 11/12/18 07:50 lab noted Assessment: 11/13/18 12:04 withdrawal sx Plan: continue detox
[2018-11-13] MEDS: chlordiazePOXIDE HCL 10 MG CAPSULE PO PRN (19:00)
[2018-11-13] MEDS ORDERED: hydrOXYzine PAMOATE 50 MG CAPSULE (FP) PO ONE (21:58)
[2018-11-13] MEDS: chlordiazePOXIDE 5 MG CAPSULE PO SCH (22:22)
[2018-11-13] MEDS: THIAMINE HCL 100 MG TABLET (FP) PO SCH (22:22)
[2018-11-13] MEDS: MELATONIN 5 MG TABLETS PO PRN (22:22)
[2018-11-13] MEDS ORDERED: ONDANSETRON *ODT* 4 MG TABLET SL PRN (23:25)
[2018-11-13] MEDS ORDERED: CYCLOBENZAPRINE HCL 5 MG TABLET PO ONE (23:55)
[2018-11-14] MEDS: CEPHALEXIN MONOHYDRATE 500 MG CAPSULE (UD) PO SCH ×5 (00:28→23:07)
[2018-11-14] MEDS: chlordiazePOXIDE HCL 10 MG CAPSULE PO PRN ×2 (03:52→18:43)
[2018-11-14] MEDS ORDERED: METHADONE HCL 5 MG TABLET ONE (04:24)
[2018-11-14] MEDS ORDERED: METHADONE HCL 10 MG TABLET ONE (04:24)
[2018-11-14] MEDS: chlordiazePOXIDE 5 MG CAPSULE PO SCH ×3 (05:20→17:34)
[2018-11-14] MEDS: METHADONE 30 MG, METHADONE 5 MG PO SCH (05:20)
[2018-11-14] MEDS: PANTOPRAZOLE 20 MG TABLET (FP) PO SCH (10:12)
[2018-11-14] MEDS: MINERAL OIL/PETROLAT/WATER TOPICAL CREAM 113 GM JAR TP SCH ×2 (10:12→22:18)
[2018-11-14] MEDS: PRENATAL VITAMINS W/ FOLIC ACID TABLET (FP) PO SCH (10:12)
[2018-11-14] MEDS: NICOTINE 14 MG/24 HOURS TOPICAL PATCH TD SCH (10:13)
[2018-11-14] MEDS ORDERED: CYCLOBENZAPRINE HCL 10 MG TABLET (FP) PO PRN (12:29)
--- NOTE | 2018-11-14 12:34 | PN ---
BHS Progress Note (SOAP) Subjective: Tremors, Sweating, Interrupted Sleep, Fatigue, Body Aches, Nausea. Objective: PATIENT A & O X 2 (UNCERTAIN ABOUT CURRENT DAY / DATE). IN NO ACUTE DISTRESS. 11/14/18 12:32 Vital Signs Temperature 97.5 F L 11/14/18 09:20 Pulse Rate 70 11/14/18 09:20 Respiratory Rate 17 11/14/18 09:20 Blood Pressure 98/59 L 11/14/18 09:20 O2 Sat by Pulse Oximetry (%) Laboratory Tests 11/12/18 11/12/18 11/12/18 07:50 07:50 07:50 WBC 3.9 L RBC 3.69 L Hgb 12.5 Hct 36.4 MCV 98.5 H MCH 34.0 H MCHC 34.5 RDW 13.1 Plt Count 153 MPV 8.6 Sodium 139 Potassium 4.2 Chloride 106 Carbon Dioxide 29 Anion Gap 4 L BUN 17 Creatinine 1.0 Creat Clearance w eGFR > 60 Random Glucose 78 Calcium 8.5 Total Bilirubin 0.3 AST 87 H ALT 107 H Alkaline Phosphatase 88 Total Protein 7.0 Albumin 3.2 L Urine Color Urine Appearance Urine pH Ur Specific [place] Urine Protein Urine Glucose (UA) Urine Ketones Urine Blood Urine Nitrite Urine Bilirubin Urine Urobilinogen Ur Leukocyte Esterase RPR Titer Nonreactive 11/12/18 14:24 WBC RBC Hgb Hct MCV MCH MCHC RDW Plt Count MPV Sodium Potassium Chloride Carbon Dioxide Anion Gap BUN Creatinine Creat Clearance w eGFR Random Glucose Calcium Total Bilirubin AST ALT Alkaline Phosphatase Total Protein Albumin Urine Color Ltyellow Urine Appearance Clear Urine pH 8.0 D Ur Specific [place] 1.011 Urine Protein Negative Urine Glucose (UA) Negative Urine Ketones Negative Urine Blood Negative Urine Nitrite Negative Urine Bilirubin Negative Urine Urobilinogen Negative Ur Leukocyte Esterase Negative RPR Titer LABS NOTED. Assessment: 11/14/18 12:32 WITHDRAWAL SYMPTOMS. Plan: CONTINUE DETOX. INCREASE DAILY PO FLUID INTAKE. ENCOURAGE AMBULATION. PRN ZOFRAN SL FOR NAUSEA. PRN FLEXERIL FOR BODY ACHES / MUSCLE SPASMS.
[2018-11-14] MEDS ORDERED: hydrOXYzine PAMOATE 25 MG CAPSULE (FP) PO PRN (20:54)
[2018-11-14] MEDS: MELATONIN 5 MG TABLETS PO PRN (22:18)
[2018-11-14] MEDS: chlordiazePOXIDE HCL 10 MG CAPSULE PO SCH (22:18)
[2018-11-14] MEDS: THIAMINE HCL 100 MG TABLET (FP) PO SCH (22:18)
[2018-11-14] MEDS ORDERED: CYCLOBENZAPRINE HCL 5 MG TABLET PO ONE (23:24)
[2018-11-15] MEDS ORDERED: METHADONE HCL 5 MG TABLET ONE (04:31)
[2018-11-15] MEDS ORDERED: METHADONE HCL 10 MG TABLET ONE (04:31)
[2018-11-15] MEDS: chlordiazePOXIDE HCL 10 MG CAPSULE PO SCH (06:02)
[2018-11-15] MEDS: CEPHALEXIN MONOHYDRATE 500 MG CAPSULE (UD) PO SCH (07:03)
[2018-11-15] MEDS: METHADONE 30 MG, METHADONE 5 MG PO SCH (07:04)
[2018-11-15 09:15] VITALS: BP 88/58; PULSE 53; TEMP 98.1
[2018-11-15] MEDS: MINERAL OIL/PETROLAT/WATER TOPICAL CREAM 113 GM JAR TP SCH (09:38)
[2018-11-15] MEDS: PRENATAL VITAMINS W/ FOLIC ACID TABLET (FP) PO SCH (09:38)
--- NOTE | 2018-11-15 12:04 | DS ---
[facility] Detox Discharge Summary Admission Date: 11/11/18 Discharge Date: 11/15/18 - History Present History: Alcohol Dependence, Cannabis Dependence, Cocaine Dependence, Opioid Dependence, Sedative Dependence, MMTP Additional Comments: POSSIBLE REHAB ADMISSION WAS BEING LOOKED INTO BY PATIENT ADMIN SECRETARY PRIOR TO PATIENT'S DISCHARGE FROM DETOX UNIT. HOWEVER, AT TIME OF DISCHARGE, PATIENT BECAME AGITATED AND DECLINED TO HAVE PRE-DISCHARGE MEDICAL ASSESSMENT DONE. PATIENT ALSO DECLINED TO HAVE ACCESS REGISTRAR SEND OUT DISCHARGE PRESCRIPTION FOR KEFLEX ( PRESCRIBED WHILE PATIENT WAS ADMITTED FOR DETOX FOR TREATMENT OF CELLULITIS OF RIGHT UPPER EXTREMITY). PRIOR TO LEAVING DETOX UNIT, PATIENT ADVISED TO GO IMMEDIATELY TO NEAREST ER SHOULD ANY UNUSUAL SYMPTOMS DEVELOP AT ANY TIME. PATIENT WAS ALSO ADVISED TO CONSIDER LOCAL 12-STEP / NA / AA OUTPATIENT SUPPORT GROUPS FOR AFTERCARE. PATIENT VERBALIZED UNDERSTANDING OF RECOMMENDATIONS. PATIENT WAS DISCHARGED FROM DETOX UNIT IN STABLE MEDICAL CONDITION. Pertinent Past History: Nicotine Dependence, History of Depression, Cellulitis, G.E.R.D., M.M.T.P., Weight Loss. - Physical Exam Results Vital Signs: Vital Signs Temperature 98.1 F 11/15/18 09:14 Pulse Rate 53 L 11/15/18 09:14 Respiratory Rate 18 11/15/18 09:14 Blood Pressure 88/58 L 11/15/18 09:14 O2 Sat by Pulse Oximetry (%) Pertinent Admission Physical Exam Findings: WITHDRAWAL SYMPTOMS. Laboratory Tests 11/12/18 11/12/18 11/12/18 07:50 07:50 07:50 WBC 3.9 L RBC 3.69 L Hgb 12.5 Hct 36.4 MCV 98.5 H MCH 34.0 H MCHC 34.5 RDW 13.1 Plt Count 153 MPV 8.6 Sodium 139 Potassium 4.2 Chloride 106 Carbon Dioxide 29 Anion Gap 4 L BUN 17 Creatinine 1.0 Creat Clearance w eGFR > 60 Random Glucose 78 Calcium 8.5 Total Bilirubin 0.3 AST 87 H ALT 107 H Alkaline Phosphatase 88 Total Protein 7.0 Albumin 3.2 L Urine Color Urine Appearance Urine pH Ur Specific [place] Urine Protein Urine Glucose (UA) Urine Ketones Urine Blood Urine Nitrite Urine Bilirubin Urine Urobilinogen Ur Leukocyte Esterase RPR Titer Nonreactive 11/12/18 14:24 WBC RBC Hgb Hct MCV MCH MCHC RDW Plt Count MPV Sodium Potassium Chloride Carbon Dioxide Anion Gap BUN Creatinine Creat Clearance w eGFR Random Glucose Calcium Total Bilirubin AST ALT Alkaline Phosphatase Total Protein Albumin Urine Color Ltyellow Urine Appearance Clear Urine pH 8.0 D Ur Specific [place] 1.011 Urine Protein Negative Urine Glucose (UA) Negative Urine Ketones Negative Urine Blood Negative Urine Nitrite Negative Urine Bilirubin Negative Urine Urobilinogen Negative Ur Leukocyte Esterase Negative RPR Titer LABS NOTED. - Treatment Hospital Course: Detox Protocol Followed, Detoxed Safely, Responded well, Discharged Condition Good Patient has Accepted a Rehab Referral to: PT DECLINES, ADVISED TO CONSIDER LOCAL 12-STEP/NA/AA OUTPATIENT PROGRAM. - Medication Discharge Medications: Ambulatory Orders NK [No Known Home Medication] 11/11/18 - Diagnosis (1) Alcohol dependence with uncomplicated withdrawal Status: Acute (2) Cellulitis Status: Acute Qualifiers: Site of cellulitis: extremity Site of cellulitis of extremity: upper extremity Laterality: right Qualified Code(s): L03.113 - Cellulitis of right upper limb (3) Cocaine dependence with withdrawal Status: Acute (4) Cannabis dependence Status: Chronic (5) GERD (gastroesophageal reflux disease) Status: Chronic Qualifiers: Esophagitis presence: without esophagitis Qualified Code(s): K21.9 - Gastro -esophageal reflux disease without esophagitis (6) Methadone maintenance therapy patient Status: Chronic (7) Nicotine dependence Status: Chronic Qualifiers: Nicotine product type: cigarettes Substance use status: uncomplicated Qualified Code(s): F17.210 - Nicotine dependence, cigarettes, uncomplicated (8) Sedative, hypnotic or anxiolytic dependence with withdrawal, uncomplicated Status: Acute (9) Weight loss Status: Chronic - AMA Did Patient Leave Against Medical Advice: No
== END 2018-11-15 10:03 | disposition home or self-care (01) | DRG 773 ==
LOC: YASAS 16:16 → Y3N 21:49
PROVIDERS: ADMIT Neuromusculoskeletal Medicine & OMM; ATTEND Neuromusculoskeletal Medicine & OMM
PROC: HZ2ZZZZ Detoxification Services for Substance Abuse Treatment (ICD-10-PCS; principal; 2018-11-11)
DX: F10.230 Alcohol dependence with withdrawal, uncomplicated (principal); F13.230 Sedative, hypnotic or anxiolytic dependence with withdrawal, uncomplicated; F14.20 Cocaine dependence, uncomplicated; F12.20 Cannabis dependence, uncomplicated; F11.20 Opioid dependence, uncomplicated; F17.210 Nicotine dependence, cigarettes, uncomplicated; B18.2 Chronic viral hepatitis C; L03.113 Cellulitis of right upper limb; K21.9 Gastro-esophageal reflux disease without esophagitis; R63.4 Abnormal weight loss; Z68.1 Body mass index [BMI] 19.9 or less, adult
CPT/HCPCS: 36415; 80053; 81003; 85027; 86593; 93005; 93010; Q0162

== ENCOUNTER 2018-12-16 14:01 | Inpatient (IN) | payer OTHER ==
[2018-12-16 17:27] VITALS: BMI 19.9
--- NOTE | 2018-12-16 18:32 | HP ---
COWS - Scale Resting Pulse: 0= WI 80 or Below Sweatin= Chills/Flushing Restless Observation: 0= Sits Still Pupil Size: 1= Pupils >than Normal Bone or Joint Aches: 0= None Runny Nose/ Eye Tearin= Runny Nose/Eyes GI Upset > 30mins: 1= Stomach Cramp Tremor Observation: 2= Slight Tremor Visible Yawning Observation: 0= None Anxiety or Irritability: 1=Feels Anxious/Irritable Goose Flesh Skin: 0=Smooth Skin COWS Score: 8 CIWA Score - Admission Criteria OASAS Guidelines: Admission for Medically Managed Detox: Requires at least one of the followin. CIWA greater than 12 2. Seizures within the past 24 hours 3. Delirium tremens within the past 24 hours 4. Hallucinations within the past 24 hours 5. Acute intervention needed for co occurring medical disorder 6. Acute intervention needed for co occurring psychiatric disorder 7. Severe withdrawal that cannot be handled at a lower level of care (continued vomiting, continued diarrhea, abnormal vital signs) requiring intravenous medication and/or fluids 8. Admission ROS [facility] Allergies/Adverse Reactions: Allergies Allergy/AdvReac Type Severity Reaction Status Date / Time No Known Allergies Allergy Verified 12/16/18 17:48 History of Present Illness: patient here requesting rehab from etoh , heroin and cocaine . Reports drinking occasionally only now , has been to detox x 2 since October 2018 , currently has court order for rehab from [facility] . [facility] 55 mg " can't remember , about 1 year " , latest meds today . cocaine : 5 bags/day IVDU in petr UE , latest use yesterday , has needles from harm reduction program , denies sharing, denies re-using , + OD x 3 most recently 1 year ago , Narcan by friend , did not go to hospital afterwards , first age of use 17 . Denies symptoms at this time heroin : currently 5 bags /day IVDU mixed with cocaine , first age of use 3 years ago , latest use yesterday cannabis : daily first age of use 13 intermittent use utox : thc , siddhartha, opi, fen , mtd . tobacco : 1/4 ppd ,contemplating quitting . etoh : 1-2 beers/day , latest this morning , current FLACA 0.000 , denies seizures, blackouts, tremors . PMHx: denies PSHx : left foot Newell's neuroma 9 years ago , chronic pain Psych : denies Meds : denies SHx : lives alone , unemployed ,on [employer] . Exam Limitations: No Limitations - Ebola screening Have you traveled outside of the country in the last 21 days: No Have you had contact with anyone from an Ebola affected area: No Have you been sick,other than usual withdrawal symptoms: No Do you have a fever: No - Review of Systems Constitutional: Unintentional Wgt. Loss (reports wt loss from 185 to current 143 lbs) EENT: reports: See HPI Respiratory: reports: No Symptoms reported Cardiac: reports: No Symptoms Reported GI: reports: See HPI : reports: No Symptoms Reported Musculoskeletal: reports: See HPI Integumentary: reports: Other (IVDU) Neuro: reports: No Symptoms reported Endocrine: reports: No Symptoms Reported Psychiatric: reports: Orientated x3, Anxious Patient History - Patient Medical History Hx Anemia: No Hx Asthma: No Hx Chronic Obstructive Pulmonary Disease (COPD): No Hx Cancer: No Hx Cardiac Disorders: No Hx Congestive Heart Failure: No Hx Hypertension: No Hx Hypercholesterolemia: No Hx Pacemaker: No HX Cerebrovascular Accident: No Hx Seizures: No Hx Dementia: No Hx Diabetes: No Hx Gastrointestinal Disorders: No Hx Liver Disease: No Hx Genitourinary Disorders: No Hx Sexually Transmitted Disorders: No Hx Renal Disease (ESRD): No Hx Thyroid Disease: No Hx Human Immunodeficiency Virus (HIV): No Hx Hepatitis C: No Hx Depression: No Hx Suicide Attempt: No Hx Bipolar Disorder: No Hx Schizophrenia: No - Patient Surgical History Past Surgical History: Yes Hx Neurologic Surgery: No Hx Cataract Extraction: No Hx Cardiac Surgery: No Hx Lung Surgery: No Hx Breast Surgery: No Hx Breast Biopsy: No Hx Abdominal Surgery: No Hx Appendectomy: No Hx Cholecystectomy: No Hx Genitourinary Surgery: No Hx Orthopedic Surgery: Yes (left foot 2010) Anesthesia Reaction: No - PPD History Previous Implant?: Yes Documented Results: Negative w/proof Implanted On Prior [facility] Admission?: Yes Date: 11/13/18 Results: 0 MM - Smoking Cessation Smoking history: Current every day smoker Have you smoked in the past 12 months: Yes Aproximately how many cigarettes per day: 5 Cigars Per Day: 0 Hx Chewing Tobacco Use: No Initiated information on smoking cessation: No - Substances Abused Heroin Route: Injection Frequency: Daily Amount used: 8 BAGS Age of first use: 34 Date of Last Use: 12/15/18 Cocaine Route: Injection Frequency: Daily Amount used: $60 Age of first use: 17 Date of Last Use: 12/15/18 Marijuana/Hashish Route: Smoking Frequency: 3-6 times per week Amount used: $20 Age of first use: 12 Date of Last Use: 12/15/18 Family Disease History - Family Disease History Family History: Denies Admission Physical Exam [facility] - Vital Signs Vital Signs: Vital Signs - 24 hr 12/16/18 17:24 Temperature 97.7 F Pulse Rate 56 L Respiratory 18 Rate Blood Pressure 119/67 - Physical General Appearance: Yes: Appropriately Dressed, Mild Distress HEENTM: Yes: EOMI, Hearing grossly Normal, Normocephalic, Normal Voice, Nasal Congestion, Rhinorrhea Respiratory: Yes: Chest Non-Tender, Lungs Clear, Normal Breath Sounds Neck: Yes: No masses,lesions,Nodules, Trachea in good position Cardiology: Yes: Regular Rhythm, Regular Rate, S1, S2 Abdominal: Yes: Normal Bowel Sounds, Non Tender, Soft Genitourinary: Yes: Within Normal Limits Back: Yes: Normal Inspection Musculoskeletal: Yes: full range of Motion, Gait Steady Extremities: Yes: Normal Capillary Refill, Normal Inspection, Normal Range of Motion Neurological: Yes: Fully Oriented, Motor Strength 5/5 Integumentary: Yes: Normal Color, Track Dyer (petr UE , no abscess) - Diagnostic (1) Cannabis dependence Current Visit: No Status: Chronic (2) Cocaine dependence Current Visit: No Status: Chronic Qualifiers: Substance use status: uncomplicated Qualified Code(s): F14.20 - Cocaine dependence, uncomplicated (3) Methadone maintenance therapy patient Current Visit: No Status: Chronic Comment: 55 mg verification pending (4) Nicotine dependence Current Visit: No Status: Chronic Qualifiers: Nicotine product type: cigarettes Substance use status: uncomplicated Qualified Code(s): F17.210 - Nicotine dependence, cigarettes, uncomplicated (5) Weight loss Current Visit: No Status: Chronic S Breath Alcohol Content Breath Alcohol Content: 0 Urine Drug Screen - Results Drug Screen Negative: No Urine Drug Screen Results: THC-Marijuana, SIDDHARTHA-Cocaine, OPI-Opiates, MTD- Methadone, FEN-Fentanyl Inpatient Rehab Admission - Rehab Decision to Admit Inpatient rehab admission?: Yes - Initial Determination Are CD services needed?: Yes Free of communicable disease: Yes Not in need of hospitalization: Yes - Rehab Admission Criteria Previous failed treatment: Yes Poor recovery environment: Yes Comorbidities: No Lacks judgement: Yes Patient is meeting Inpatient Rehab admission criteria:: Yes
[2018-12-16] MEDS ORDERED: MAGNESIUM HYDROX 2400MG/30ML ORAL SUSPENSION 30 ML CUP PO PRN (18:38)
[2018-12-16] MEDS ORDERED: NICOTINE POLACRILEX 2 MG GUM BC PRN (18:38)
[2018-12-16] MEDS ORDERED: MENTHOL/PHENOL 1 EACH UD MM PRN (18:38)
[2018-12-16] MEDS ORDERED: MAGNESIUM CITRATE 300 ML BOTTLE PO PRN (18:38)
[2018-12-16] MEDS: MELATONIN 5 MG TABLETS PO PRN (22:45)
[2018-12-16] MEDS: THIAMINE HCL 100 MG TABLET (FP) PO SCH (22:45)
[2018-12-16] MEDS: hydrOXYzine PAMOATE 25 MG CAPSULE (FP) PO PRN (22:45)
[2018-12-16] MEDS: cloNIDine HCL 0.1 MG TABLET PO SCH (22:45)
[2018-12-16] MEDS: MAG HYDROX/AL HYDROX/SIMETH 30 ML UNIT-DOSE CUP PO PRN (22:50)
[2018-12-17] MEDS ORDERED: METHADONE HCL 10 MG TABLET PO SCH (06:00)
[2018-12-17] MEDS ORDERED: METHADONE HCL 40 MG DISPERSABLE TABLET PO SCH (10:00)
[2018-12-17] MEDS ORDERED: METHADONE HCL 40 MG DISPERSABLE TABLET ONE (11:04)
[2018-12-17] MEDS ORDERED: METHADONE HCL 5 MG TABLET ONE (11:04)
[2018-12-17] MEDS: PRENATAL VITAMINS W/ FOLIC ACID TABLET (FP) PO SCH (11:06)
[2018-12-17] MEDS: METHADONE 40 MG, METHADONE 15 MG PO SCH (11:06)
[2018-12-17] MEDS: cloNIDine HCL 0.1 MG TABLET PO SCH ×2 (11:44→21:35)
[2018-12-17] MEDS: hydrOXYzine PAMOATE 25 MG CAPSULE (FP) PO PRN (12:16)
[2018-12-17] MEDS: THIAMINE HCL 100 MG TABLET (FP) PO SCH (21:34)
[2018-12-17] MEDS: MELATONIN 5 MG TABLETS PO PRN (21:35)
[2018-12-18] MEDS: METHADONE 40 MG, METHADONE 15 MG PO SCH (06:31)
[2018-12-18] MEDS ORDERED: METHADONE HCL 5 MG TABLET ONE (06:31)
[2018-12-18] MEDS ORDERED: METHADONE HCL 40 MG DISPERSABLE TABLET ONE (06:31)
[2018-12-18] MEDS: hydrOXYzine PAMOATE 25 MG CAPSULE (FP) PO PRN ×3 (07:46→17:33)
[2018-12-18] MEDS: PRENATAL VITAMINS W/ FOLIC ACID TABLET (FP) PO SCH (09:54)
[2018-12-18] MEDS: IBUPROFEN 400 MG TABLET (FP) PO PRN (12:49)
[2018-12-18 13:23] LABS: URINE APPEARANCE CLEAR; URINE BILIRUBIN NEGATIVE (<2.0 mg/dL); URINE COLOR YELLOW; URINE GLUCOSE (UA) NEGATIVE (NEGATIVE); URINE KETONE NEGATIVE (NEGATIVE); URINE LEUK ESTERASE NEGATIVE (NEGATIVE); URINE NITRITE NEGATIVE (NEGATIVE); URINE PROTEIN NEGATIVE (NEGATIVE); URINE UROBILINOGEN NEGATIVE mg/dL (0.2-1.0)
[2018-12-18 13:27] LABS: URINE MUCUS RARE
[2018-12-18] MEDS: MELATONIN 5 MG TABLETS PO PRN (21:39)
[2018-12-18] MEDS: THIAMINE HCL 100 MG TABLET (FP) PO SCH (21:39)
[2018-12-19] MEDS ORDERED: METHADONE HCL 40 MG DISPERSABLE TABLET ONE (05:10)
[2018-12-19] MEDS ORDERED: METHADONE HCL 5 MG TABLET ONE (05:10)
[2018-12-19] MEDS: METHADONE 40 MG, METHADONE 15 MG PO SCH (06:16)
[2018-12-19] MEDS: PRENATAL VITAMINS W/ FOLIC ACID TABLET (FP) PO SCH (10:31)
[2018-12-19] MEDS: hydrOXYzine PAMOATE 25 MG CAPSULE (FP) PO PRN ×2 (13:17→18:04)
--- NOTE | 2018-12-19 13:21 | PN ---
[facility] Progress Note Note: PT C/O ANXIETY AND "PANIC ATTACK". OOB AMBULATING WITH STEADY GAIT. Vital Signs (72 hours) 12/16/18 12/16/18 12/17/18 17:24 21:50 01:17 Temperature 97.7 F 98.6 F Pulse Rate 56 L 49 L Respiratory 18 18 18 Rate Blood Pressure 119/67 119/72 12/17/18 12/17/18 12/17/18 03:30 06:51 21:00 Temperature 97.8 F Pulse Rate 57 L 55 L Respiratory 18 18 Rate Blood Pressure 105/60 113/60 12/18/18 12/18/18 12/18/18 00:30 03:30 06:59 Temperature 98.3 F Pulse Rate 53 L Respiratory 18 18 16 Rate Blood Pressure 100/57 L 12/19/18 12/19/18 12/19/18 00:30 03:30 07:15 Temperature 98.4 F Pulse Rate 49 L Respiratory 18 18 16 Rate Blood Pressure 106/65 VISTARIL 50 MG PO GIVEN.
[2018-12-19] MEDS ORDERED: hydrOXYzine PAMOATE 25 MG CAPSULE (FP) PO ONE (13:50)
[2018-12-19] MEDS: THIAMINE HCL 100 MG TABLET (FP) PO SCH (23:19)
[2018-12-20] MEDS ORDERED: METHADONE HCL 40 MG DISPERSABLE TABLET ONE (05:21)
[2018-12-20] MEDS ORDERED: METHADONE HCL 5 MG TABLET ONE (05:21)
[2018-12-20] MEDS: METHADONE 40 MG, METHADONE 15 MG PO SCH (06:47)
[2018-12-20] MEDS: PRENATAL VITAMINS W/ FOLIC ACID TABLET (FP) PO SCH (10:08)
[2018-12-20] MEDS: hydrOXYzine PAMOATE 25 MG CAPSULE (FP) PO PRN (10:09)
--- NOTE | 2018-12-20 14:56 | PN ---
S Progress Note Note: pPT IS REQUESTING TO LOWER HIS METHADONE DOSE BY ABOUT 10 MG FROM 55 MG DAILY DOSE BECAUSE "I WANT TO SOMETIME GET OFF OF IT". PT IS ALERT O X 3. IN NAD. AMBULATING WITH STEADY GAIT AND PARTICIPATING IN GROUPS. PT BELONGS TO [facility]. Vital Signs 12/20/18 07:05 Temperature 98.9 F Pulse Rate 53 L Respiratory 16 Rate Blood Pressure 112/66 PLAN:PT WAS INSTRUCTED TO MEET WITH HIS COUNSELOR MS LEONARDO MONZON AND COMMUNICATE REQUEST TO HIS CLINIC TO FAX US DIRECTION OF HIS REQUEST IF THEY APPROVE A DECREASE TO HIS METHADONE DOSE. PT UNDERSTANDS AND AGREEABLE TO POC.
[2018-12-20] MEDS: MAG HYDROX/AL HYDROX/SIMETH 30 ML UNIT-DOSE CUP PO PRN (20:23)
[2018-12-20] MEDS: THIAMINE HCL 100 MG TABLET (FP) PO SCH (21:40)
[2018-12-20] MEDS: MELATONIN 5 MG TABLETS PO PRN (21:40)
[2018-12-21] MEDS ORDERED: METHADONE HCL 5 MG TABLET ONE (04:20)
[2018-12-21] MEDS ORDERED: METHADONE HCL 40 MG DISPERSABLE TABLET ONE (04:20)
[2018-12-21] MEDS: METHADONE 40 MG, METHADONE 15 MG PO SCH (06:35)
[2018-12-21] MEDS: IBUPROFEN 400 MG TABLET (FP) PO PRN (06:36)
[2018-12-21] MEDS: PRENATAL VITAMINS W/ FOLIC ACID TABLET (FP) PO SCH (10:10)
[2018-12-21] MEDS: hydrOXYzine PAMOATE 25 MG CAPSULE (FP) PO PRN (10:11)
[2018-12-21] MEDS: THIAMINE HCL 100 MG TABLET (FP) PO SCH (21:53)
[2018-12-21] MEDS: MELATONIN 5 MG TABLETS PO PRN (21:53)
[2018-12-22] MEDS ORDERED: METHADONE HCL 5 MG TABLET ONE (06:08)
[2018-12-22] MEDS ORDERED: METHADONE HCL 40 MG DISPERSABLE TABLET ONE (06:09)
[2018-12-22] MEDS: METHADONE 40 MG, METHADONE 15 MG PO SCH (06:13)
[2018-12-22] MEDS: ACETAMINOPHEN 325 MG TABLET (FP) PO PRN ×2 (06:15→22:00)
[2018-12-22] MEDS: PRENATAL VITAMINS W/ FOLIC ACID TABLET (FP) PO SCH (09:55)
[2018-12-22] MEDS: hydrOXYzine PAMOATE 25 MG CAPSULE (FP) PO PRN (09:56)
[2018-12-22] MEDS: THIAMINE HCL 100 MG TABLET (FP) PO SCH (22:01)
[2018-12-22] MEDS: MELATONIN 5 MG TABLETS PO PRN (22:01)
[2018-12-23] MEDS ORDERED: METHADONE HCL 5 MG TABLET ONE (06:07)
[2018-12-23] MEDS ORDERED: METHADONE HCL 40 MG DISPERSABLE TABLET ONE (06:07)
[2018-12-23] MEDS: METHADONE 40 MG, METHADONE 15 MG PO SCH (06:07)
[2018-12-23] MEDS: IBUPROFEN 400 MG TABLET (FP) PO PRN (06:08)
[2018-12-23] MEDS: PRENATAL VITAMINS W/ FOLIC ACID TABLET (FP) PO SCH (10:32)
[2018-12-23] MEDS: MELATONIN 5 MG TABLETS PO PRN (22:50)
[2018-12-23] MEDS: THIAMINE HCL 100 MG TABLET (FP) PO SCH (22:50)
[2018-12-23] MEDS: hydrOXYzine PAMOATE 25 MG CAPSULE (FP) PO PRN (22:50)
[2018-12-24] MEDS ORDERED: METHADONE HCL 5 MG TABLET ONE (05:04)
[2018-12-24] MEDS ORDERED: METHADONE HCL 40 MG DISPERSABLE TABLET ONE (05:05)
[2018-12-24] MEDS: METHADONE 40 MG, METHADONE 15 MG PO SCH (06:10)
[2018-12-24] MEDS: PRENATAL VITAMINS W/ FOLIC ACID TABLET (FP) PO SCH (10:21)
[2018-12-24] MEDS: hydrOXYzine PAMOATE 25 MG CAPSULE (FP) PO PRN (10:22)
[2018-12-24] MEDS: IBUPROFEN 400 MG TABLET (FP) PO PRN (18:39)
[2018-12-24] MEDS: THIAMINE HCL 100 MG TABLET (FP) PO SCH (21:51)
[2018-12-24] MEDS: ACETAMINOPHEN 325 MG TABLET (FP) PO PRN (21:52)
[2018-12-24] MEDS: MELATONIN 5 MG TABLETS PO PRN (21:52)
[2018-12-25] MEDS ORDERED: METHADONE HCL 10 MG TABLET PO SCH (06:00)
[2018-12-25] MEDS ORDERED: METHADONE HCL 40 MG DISPERSABLE TABLET ONE (06:17)
[2018-12-25] MEDS ORDERED: METHADONE HCL 10 MG TABLET ONE (06:17)
[2018-12-25] MEDS ORDERED: METHADONE HCL 5 MG TABLET ONE (06:17)
[2018-12-25] MEDS: METHADONE 40 MG, METHADONE 10 MG, METHADONE 5 MG PO SCH (06:18)
[2018-12-25] MEDS: hydrOXYzine PAMOATE 25 MG CAPSULE (FP) PO PRN ×2 (10:04→22:05)
[2018-12-25] MEDS: PRENATAL VITAMINS W/ FOLIC ACID TABLET (FP) PO SCH (10:04)
[2018-12-25] MEDS: THIAMINE HCL 100 MG TABLET (FP) PO SCH (22:05)
[2018-12-25] MEDS: IBUPROFEN 400 MG TABLET (FP) PO PRN (22:05)
[2018-12-25] MEDS: MELATONIN 5 MG TABLETS PO PRN (22:05)
[2018-12-26] MEDS ORDERED: METHADONE HCL 5 MG TABLET ONE (06:07)
[2018-12-26] MEDS: METHADONE 40 MG, METHADONE 10 MG, METHADONE 5 MG PO SCH (06:08)
[2018-12-26] MEDS ORDERED: METHADONE HCL 10 MG TABLET ONE (06:08)
[2018-12-26] MEDS ORDERED: METHADONE HCL 40 MG DISPERSABLE TABLET ONE (06:08)
[2018-12-26] MEDS: PRENATAL VITAMINS W/ FOLIC ACID TABLET (FP) PO SCH (10:59)
[2018-12-26] MEDS: hydrOXYzine PAMOATE 25 MG CAPSULE (FP) PO PRN ×2 (11:00→21:43)
--- NOTE | 2018-12-26 14:43 | PN ---
[facility] Progress [facility] Note: PT REQUESTED FOR DECREASE DOSE OFCURRENT METHADONE DOSE OF 55 MG BY 10 MG. PT IN CONTACT AND AUTHORIZATION WITH [facility] DR. MARISA FORTUNE HAVE AUTHORIZED [facility] TO ADJUST PT'S DOSE--"I'M WRITING TO REPORT THAT MR. OLEKSANDR KRAFT CAN BE PUT ON 50 MGS OF METHADONE WHICH IS A DECREASE FROM HIS CURRENT DOSAGE OF [address] HIS STAY AT [facility] FOR DETOX/REHAB"-DR. MARISA FORTUNE/. Vital Signs 12/26/18 07:05 Temperature 98.5 F Pulse Rate 63 Respiratory 17 Rate Blood Pressure 127/70 Laboratory Tests 12/18/18 08:30 Urine Color Yellow Urine Appearance Clear Urine pH 5.0 D Ur Specific [place] 1.017 Urine Protein Negative Urine Glucose (UA) Negative Urine Ketones Negative Urine Blood 1+ H Urine Nitrite Negative Urine Bilirubin Negative Urine Urobilinogen Negative Ur Leukocyte Esterase Negative Urine WBC (Auto) <1 Urine RBC (Auto) <1 Urine Mucus Rare PLAN:DECREASE CURRENT METHADONE 55 MGS BY 10 MG. START METHADONE 50 MG PO ON 12/27/18 @0600 DAILY.
[2018-12-26] MEDS: IBUPROFEN 400 MG TABLET (FP) PO PRN (19:05)
[2018-12-26] MEDS: THIAMINE HCL 100 MG TABLET (FP) PO SCH (21:43)
[2018-12-27] MEDS ORDERED: METHADONE HCL 10 MG TABLET PO SCH (06:00)
[2018-12-27] MEDS: METHADONE 40 MG, METHADONE 10 MG PO SCH (06:08)
[2018-12-27] MEDS ORDERED: METHADONE HCL 10 MG TABLET ONE (06:08)
[2018-12-27] MEDS ORDERED: METHADONE HCL 40 MG DISPERSABLE TABLET ONE (06:08)
[2018-12-27] MEDS: PRENATAL VITAMINS W/ FOLIC ACID TABLET (FP) PO SCH (10:24)
[2018-12-27] MEDS: hydrOXYzine PAMOATE 25 MG CAPSULE (FP) PO PRN (10:24)
[2018-12-27] MEDS: THIAMINE HCL 100 MG TABLET (FP) PO SCH (22:03)
[2018-12-28] MEDS ORDERED: METHADONE HCL 40 MG DISPERSABLE TABLET ONE (03:28)
[2018-12-28] MEDS ORDERED: METHADONE HCL 10 MG TABLET ONE (03:28)
[2018-12-28] MEDS: METHADONE 40 MG, METHADONE 10 MG PO SCH (06:13)
[2018-12-28] MEDS: PRENATAL VITAMINS W/ FOLIC ACID TABLET (FP) PO SCH (10:39)
[2018-12-28] MEDS: hydrOXYzine PAMOATE 25 MG CAPSULE (FP) PO PRN ×2 (10:40→21:53)
[2018-12-28] MEDS: THIAMINE HCL 100 MG TABLET (FP) PO SCH (21:52)
[2018-12-28] MEDS: MELATONIN 5 MG TABLETS PO PRN (21:52)
[2018-12-29] MEDS ORDERED: METHADONE HCL 40 MG DISPERSABLE TABLET ONE (04:06)
[2018-12-29] MEDS ORDERED: METHADONE HCL 10 MG TABLET ONE (04:06)
[2018-12-29] MEDS: METHADONE 40 MG, METHADONE 10 MG PO SCH (06:15)
[2018-12-29 06:58] VITALS: TEMP 98.3
[2018-12-29] MEDS: PRENATAL VITAMINS W/ FOLIC ACID TABLET (FP) PO SCH (10:26)
[2018-12-29] MEDS: hydrOXYzine PAMOATE 25 MG CAPSULE (FP) PO PRN ×2 (10:27→21:36)
[2018-12-29] MEDS: THIAMINE HCL 100 MG TABLET (FP) PO SCH (21:35)
[2018-12-29] MEDS: MELATONIN 5 MG TABLETS PO PRN (21:36)
[2018-12-30] MEDS ORDERED: METHADONE HCL 10 MG TABLET ONE (04:13)
[2018-12-30] MEDS ORDERED: METHADONE HCL 40 MG DISPERSABLE TABLET ONE (04:13)
[2018-12-30] MEDS: METHADONE 40 MG, METHADONE 10 MG PO SCH (05:48)
[2018-12-30 06:59] VITALS: BP 110/66; PULSE 56
--- NOTE | 2018-12-30 08:44 | PN ---
[facility] Progress Note Note: PT COMPLETED REHAB AND DISCHARGING TODAY. PT MET WITH HIS COUNSELOR AND WAS REFERRED BACK [facility] OUT [facility] FOR CD AFTERCARE ON [address] [place] [address]. PT STATES HE IS GOING BACK TO HIS HOME TODAY. PT REPORTS HE HAS NO PCP BECAUSE 'NEVER GETS SICK ANYWAY" BUT PT REPORTS [facility] IS CLOSE BY HIS RESIDENCE. ENCOURAGED TO CALL HIS INSURANCE CARRIER TO SET UP A PCP FOR MEDICAL MANAGEMENT WHEN NEEDED. ALERT O X 3. DENIES S/H/I. DECLINED COURTESY RX NARCAN SPRAY, STATING I HAVE SOME AT HOME". Home Medications Medication Instructions Recorded Methadone [Dolophine -] 55 mg PO DAILY 12/16/18 PT D/C'D OM METHADONE 50 MG PO DAILY DUE TO PT REQUEST FOR DECREASE AND APPROVED BY HIS [facility] [employer] WHILE HERE IN REHAB TREATMENT(SEE NOTE OF ). Vital Signs (72 hours) 12/28/18 12/28/18 12/28/18 00:30 03:30 06:54 Temperature 98.7 F Pulse Rate 55 L Respiratory 18 18 17 Rate Blood Pressure 111/73 12/29/18 12/29/18 12/29/18 00:30 03:30 06:58 Temperature 98.3 F Pulse Rate 53 L Respiratory 18 18 18 Rate Blood Pressure 113/64 12/30/18 12/30/18 12/30/18 00:30 03:30 06:59 Temperature 98.3 F Pulse Rate 56 L Respiratory 20 18 18 Rate Blood Pressure 110/66 Laboratory Tests 12/18/18 08:30 Urine Color Yellow Urine Appearance Clear Urine pH 5.0 D Ur Specific [place] 1.017 Urine Protein Negative Urine Glucose (UA) Negative Urine Ketones Negative Urine Blood 1+ H Urine Nitrite Negative Urine Bilirubin Negative Urine Urobilinogen Negative Ur Leukocyte Esterase Negative Urine WBC (Auto) <1 Urine RBC (Auto) <1 Urine Mucus Rare NAD MEDICALLY STABLE PLAN:FOLLOW UP WITH CD AFTERCARE AT [facility] ON 12/30/18 AT 10 :00 A.M. FOLLOW UP WITH PRIMARY CARE RECOMMENDED ABOVE WITHIN 1-2 WEEKS AFTER DISCHARGE.
[2018-12-30] MEDS: PRENATAL VITAMINS W/ FOLIC ACID TABLET (FP) PO SCH (10:19)
[2018-12-30] MEDS: hydrOXYzine PAMOATE 25 MG CAPSULE (FP) PO PRN (10:20)
== END 2018-12-30 10:45 | disposition home or self-care (01) | DRG 772 ==
LOC: YASAS 14:01 → Y5N 19:37
PROVIDERS: ADMIT Neuromusculoskeletal Medicine & OMM; ATTEND Neuromusculoskeletal Medicine & OMM
PROC: HZ42ZZZ Group Counseling for Substance Abuse Treatment, Cognitive-Behavioral (ICD-10-PCS; principal; 2018-12-16)
DX: F14.20 Cocaine dependence, uncomplicated (principal); F11.20 Opioid dependence, uncomplicated; F12.20 Cannabis dependence, uncomplicated; F17.210 Nicotine dependence, cigarettes, uncomplicated; R63.4 Abnormal weight loss; Z68.1 Body mass index [BMI] 19.9 or less, adult
CPT/HCPCS: 81003; 81015; J0735

== ENCOUNTER 2020-07-12 14:00 | Inpatient (IN) | payer OTHER ==
--- NOTE | 2020-07-12 14:21 | BHS.RME ---
Substance Use & Tx History - Substance Use History Heroin Substance amount: 8 bags Frequency of use: Daily Substance route: Injection (ex: intravenous or skin popping) Date of Last Use: 07/12/20 Cocaine- Powder Substance amount: $60 Frequency of use: Daily Substance route: Injection (ex: intravenous or skin popping) Date of Last Use: 07/11/20 Nicotine Substance amount: 8 cigs Frequency of use: Daily Substance route: Smoking Date of Last Use: 07/12/20 Marijuana/Hashish Substance amount: $5. Frequency of use: Daily Substance route: Smoking Date of Last Use: 07/11/20 - Last Treatment Date of last treatment: 2018, REhab Treatment type: Substance Use Disorder (JAYME) Where was last treatment: Rehab Physical/Psych/Mental Status - Behavior General Behavior: Decreased activity (rehab candidate) Eye Contact: Normal - Cooperativeness Cooperativeness: Cooperative - Thinking Thought Processes: Tight Thought content: Future oriented - Physical Health Problems Is patient presently having any pain?: Yes (back: withdrawal and chronic) Does patient presently have any injuries (include location): No Does patient currently have a fever: No
[2020-07-12 14:43] VITALS: BMI 21.2
--- NOTE | 2020-07-12 16:38 | HP ---
CIWA Score - Admission Criteria OASAS Guidelines: Admission for Medically Managed Detox: Requires at least one of the followin. CIWA greater than 12 2. Seizures within the past 24 hours 3. Delirium tremens within the past 24 hours 4. Hallucinations within the past 24 hours 5. Acute intervention needed for co occurring medical disorder 6. Acute intervention needed for co occurring psychiatric disorder 7. Severe withdrawal that cannot be handled at a lower level of care (continued vomiting, continued diarrhea, abnormal vital signs) requiring intravenous medication and/or fluids 8. Admitting History and Physical - Smoking History Smoking history: Current every day smoker Have you smoked in the past 12 months: Yes Aproximately how many cigarettes per day: 5 - Alcohol/Substance Use Hx Alcohol Use: Yes Admission ROS S - HPI Chief Complaint: Here for rehab from cocaine use. Is in a methadone program- 45 mg/day. Allergies/Adverse Reactions: Allergies Allergy/AdvReac Type Severity Reaction Status Date / Time No Known Allergies Allergy Verified 12/16/18 17:48 History of Present Illness: 39 with long h/o of OUD- started with pain pills at age 15 and started with heroin 5 years ago. Says he is in a [facility]one program 45mg dose but using heroin to come down from using cocaine. cocaine- $60/day klever 8bags a day- gettin methadone- d/w pt to consider increase of methadone dose- says he is trying to come off this. takes no meds PCP- can't remember name - Ebola screening Have you traveled outside of the country in the last 21 days: No Have you had contact with anyone from an Ebola affected area: No Have you been sick,other than usual withdrawal symptoms: No Do you have a fever: No - Review of Systems Constitutional: No Symptoms Reported EENT: reports: No Symptoms Reported Respiratory: reports: No Symptoms reported Cardiac: reports: No Symptoms Reported GI: reports: No Symptoms Reported : reports: No Symptoms Reported Musculoskeletal: reports: No Symptoms Reported Integumentary: reports: No Symptoms Reported Neuro: reports: No Symptoms reported Endocrine: reports: No Symptoms Reported Hematology: reports: No Symptoms Reported Psychiatric: reports: No Sypmtoms Reported Other Systems: Reviewed and Negative Patient History - Patient Medical History Hx Anemia: No Hx Asthma: No Hx Chronic Obstructive Pulmonary Disease (COPD): No Hx Cancer: No Hx Cardiac Disorders: No Hx Congestive Heart Failure: No Hx Hypertension: No Hx Hypercholesterolemia: No Hx Pacemaker: No HX Cerebrovascular Accident: No Hx Seizures: No Hx Dementia: No Hx Diabetes: No Hx Gastrointestinal Disorders: No Hx Liver Disease: No Hx Genitourinary Disorders: No Hx Sexually Transmitted Disorders: No Hx Renal Disease (ESRD): No Hx Thyroid Disease: No Hx Human Immunodeficiency Virus (HIV): No Hx Hepatitis C: No Hx Depression: No Hx Suicide Attempt: No Hx Bipolar Disorder: No Hx Schizophrenia: No - Patient Surgical History Past Surgical History: Yes Hx Neurologic Surgery: No Hx Cataract Extraction: No Hx Cardiac Surgery: No Hx Lung Surgery: No Hx Breast Surgery: No Hx Breast Biopsy: No Hx Abdominal Surgery: No Hx Appendectomy: No Hx Cholecystectomy: No Hx Genitourinary Surgery: No Hx Orthopedic Surgery: Yes (left foot 2009) Anesthesia Reaction: No - PPD History Date: 11/13/18 Results: 0 MM - Smoking Cessation Smoking history: Current every day smoker Have you smoked in the past 12 months: Yes Aproximately how many cigarettes per day: 5 Cigars Per Day: 0 Hx Chewing Tobacco Use: No Initiated information on smoking cessation: Yes 'Breaking Loose' booklet given: 07/12/20 - Substance & Tx. History Hx Alcohol Use: Yes Hx Substance Use: Yes Substance Use Type: Heroin, Marijuana, Prescribed Hx Substance Use Treatment: Yes Admission Physical Exam S - Vital Signs Vital Signs: Vital Signs - 24 hr 07/12/20 14:41 Temperature 97.2 F L Pulse Rate 62 Respiratory 12 Rate Blood Pressure 109/64 - Physical General Appearance: Yes: Within Normal Limits HEENTM: Yes: Within Normal Limits, Hearing grossly Normal, BRUNO, Pharynx Normal Respiratory: Yes: Within Normal Limits Neck: Yes: Within Normal Limits, No masses,lesions,Nodules Cardiology: Yes: Within Normal Limits Abdominal: Yes: Within Normal Limits, Normal Bowel Sounds Back: Yes: Within Normal Limits, Normal Inspection Extremities: Yes: Within Normal Limits, Normal Capillary Refill Neurological: Yes: Within Normal Limits, supervisor tank house II-XII NML intact, Fully Oriented Integumentary: Yes: Track Dyer (r forearm with quarter size area of redness, no pain, no radiation-injection site, bruises petr lower extr from metal bed frame) Lymphatic: Yes: Within Normal Limits - Diagnostic (1) Opioid dependence Current Visit: No Status: Acute (2) Skin abrasion Current Visit: No Status: Acute (3) Methadone maintenance therapy patient Current Visit: No Status: Chronic Comment: 55 mg verification pending Breathalyzer - Breathalyzer Breathalyzer: 0.003 Urine Drug Screen - Test Device Lot number: [id number] Expiration date: 01/23/22 - Control Is test valid?: Yes - Results Drug screen NEGATIVE: No Urine drug screen results: THC-Marijuana, NAS-Cocaine, FEN-Fentanyl, MOP- Opiates, MTD-Methadone Inpatient Rehab Admission - Rehab Decision to Admit Inpatient rehab admission?: Yes - Initial Determination Are CD services needed?: Yes Free of communicable disease: Yes Not in need of hospitalization: Yes - Rehab Admission Criteria Previous failed treatment: Yes Poor recovery environment: Yes Comorbidities: Yes Lacks judgement: Yes Patient is meeting Inpatient Rehab admission criteria:: Yes (pt is in a methadone program and needs rehab from cocaine)
[2020-07-12] MEDS ORDERED: LOPERAMIDE HCL 2 MG CAPSULE PO PRN (16:46)
[2020-07-12] MEDS ORDERED: guaiFENesin 200 MG/10 ML 10 ML UNIT-DOSE CUPS PO PRN (16:46)
[2020-07-12] MEDS ORDERED: P-EPHED 60MG/TRIPROLIDI 2.5MG TABLET PO PRN (16:46)
[2020-07-12] MEDS ORDERED: NICOTINE POLACRILEX 2 MG GUM BC PRN (16:46)
[2020-07-12] MEDS ORDERED: MAGNESIUM CITRATE 300 ML BOTTLE PO PRN (16:46)
[2020-07-12] MEDS ORDERED: MAGNESIUM HYDROX 2400MG/30ML ORAL SUSPENSION 30 ML CUP PO PRN (16:46)
[2020-07-12] MEDS ORDERED: ACETAMINOPHEN 325 MG TABLET (FP) PO PRN (16:46)
[2020-07-12] MEDS ORDERED: IBUPROFEN 400 MG TABLET (FP) PO PRN (16:46)
--- OUTSIDE RECORDS SUMMARY | 2020-07-12 17:16 | XMS ---
:1980 Author Organization [facility] Support Name Relationship Address Phone UE Unavailable Unavailable Unavailable YANIQUE KRAFT SISTER [address] [place] [address] [place] [address] Re-disclosure Warning The records that you are about to access may contain information from federally- assisted alcohol or drug abuse programs. If such information is present, then the following federally mandated warning applies: This information has been disclosed to you from records protected by federal confidentiality rules (42 CFR part 2). The federal rules prohibit you from making any further disclosure of this information unless further disclosure is expressly permitted by the written consent of the person to whom it pertains or as otherwise permitted by 42 CFR part 2. A general authorization for the release of medical or other information is NOT sufficient for this purpose. The Federal rules restrict any use of the information to criminally investigate or prosecute any alcohol or drug abuse patient.The records that you are about to access may contain highly sensitive health information, the redisclosure of which is protected by Article 27-F of the [facility] Public Health law. If you continue you may haveaccess to information: Regarding HIV / AIDS; Provided by facilities licensed or operated by the [facility] Office of Mental Health; or Provided by the [facility] Office for People With Developmental Disabilities. If such information is present, then the following [facility] mandated warning applies: This information has been disclosed to you from confidential records which are protected by state law. State law prohibits you from making any further disclosure of this information without the specific written consent of the person to whom it pertains, or as otherwise permitted by law. Any unauthorized further disclosure in violation of state law may result in a fine or half-way sentence or both. A general authorization for the release of medical or other information is NOT sufficient authorization for further disclosure. Insurance Providers Payer name Policy type Policy ID Covered Covered green party's Policy P jimmy / Coverage green party ID relationship to [employer] type [employer] DAISY [id number] SP [id number] 000 HEALTH NON CAP DAISY [id number] HEALTH NON CAP
[2020-07-12] MEDS ORDERED: TUBERCULIN PPD 5 TU/0.1ML VIAL ID ONE (17:54)
[2020-07-12] MEDS: hydrOXYzine PAMOATE 25 MG CAPSULE (FP) PO SCH ×2 (17:55→21:29)
[2020-07-12] MEDS: MELATONIN 5 MG TABLETS PO SCH (21:28)
[2020-07-12] MEDS: THIAMINE HCL 100 MG TABLET (FP) PO SCH (21:28)
[2020-07-12] MEDS: cloNIDine HCL 0.1 MG TABLET PO PRN (21:28)
[2020-07-13] MEDS: hydrOXYzine PAMOATE 25 MG CAPSULE (FP) PO SCH ×5 (07:02→21:25)
[2020-07-13] MEDS ORDERED: METHADONE HCL 10 MG TABLET PO SCH (09:00)
[2020-07-13] MEDS: PRENATAL VITAMINS W/ FOLIC ACID TABLET (FP) PO SCH (09:32)
[2020-07-13] MEDS ORDERED: METHADONE HCL 5 MG TABLET ONE (10:51)
[2020-07-13] MEDS ORDERED: METHADONE HCL 40 MG DISPERSABLE TABLET ONE (10:51)
[2020-07-13] MEDS: METHADONE 40 MG, METHADONE 5 MG PO SCH (10:51)
[2020-07-13 11:41] LABS: HEMATOCRIT 35.5 % (35.4-49); HEMOGLOBIN 11.6 GM/dL (11.7-16.9); MCHC 32.7 g/dl (32.0-35.9); MEAN CELL VOLUME 94.8 fl (80-96); MEAN PLT VOLUME 8.5 fl (7.5-11.1); PLATELET COUNT 187 K/MM3 (134-434); RBC 3.74 M/mm3 (4.00-5.60); RDW 14.6 % (11.9-15.9); WHITE BLOOD COUNT 4.5 K/mm3 (4.0-10.0)
[2020-07-13 12:04] LABS: BLOOD UREA NITROGEN 18.2 mg/dL (7-18); CALCIUM 8.8 mg/dL (8.5-10.1); POTASSIUM 4.1 mmol/L (3.5-5.1)
[2020-07-13 12:07] LABS: BILIRUBIN,TOTAL 0.7 mg/dL (0.2-1); CREATININE 0.8 mg/dL (0.55-1.3); TOT PROT 7.6 g/dl (6.4-8.2)
[2020-07-13] MEDS: THIAMINE HCL 100 MG TABLET (FP) PO SCH (21:25)
[2020-07-13] MEDS: MELATONIN 5 MG TABLETS PO SCH (21:25)
[2020-07-13] MEDS: cloNIDine HCL 0.1 MG TABLET PO PRN (21:25)
[2020-07-14] MEDS ORDERED: METHADONE HCL 40 MG DISPERSABLE TABLET ONE (03:23)
[2020-07-14] MEDS ORDERED: METHADONE HCL 5 MG TABLET ONE (03:23)
[2020-07-14] MEDS: METHADONE 40 MG, METHADONE 5 MG PO SCH (06:27)
[2020-07-14] MEDS: hydrOXYzine PAMOATE 25 MG CAPSULE (FP) PO SCH ×5 (06:27→22:20)
[2020-07-14] MEDS: PRENATAL VITAMINS W/ FOLIC ACID TABLET (FP) PO SCH (10:29)
[2020-07-14 17:14] LABS: PH,URINE 7.5 (5.0-8.0); URINE APPEARANCE CLEAR; URINE BILIRUBIN NEGATIVE (NEGATIVE); URINE COLOR YELLOW; URINE GLUCOSE (UA) NEGATIVE (NEGATIVE); URINE KETONE NEGATIVE (NEGATIVE); URINE LEUK ESTERASE NEGATIVE (NEGATIVE); URINE NITRITE NEGATIVE (NEGATIVE); URINE PROTEIN NEGATIVE (NEGATIVE); URINE UROBILINOGEN 0.2 mg/dL (0.2-1.0)
[2020-07-14] MEDS: cloNIDine HCL 0.1 MG TABLET PO PRN ×2 (18:23→22:18)
[2020-07-14] MEDS: MAG HYDROX/AL HYDROX/SIMETH 30 ML UNIT-DOSE CUP PO PRN (18:24)
[2020-07-14] MEDS: THIAMINE HCL 100 MG TABLET (FP) PO SCH (22:19)
[2020-07-14] MEDS: MELATONIN 5 MG TABLETS PO SCH (22:20)
[2020-07-15] MEDS ORDERED: METHADONE HCL 5 MG TABLET ONE (03:59)
[2020-07-15] MEDS ORDERED: METHADONE HCL 40 MG DISPERSABLE TABLET ONE (03:59)
[2020-07-15] MEDS: METHADONE 40 MG, METHADONE 5 MG PO SCH (06:17)
[2020-07-15] MEDS: hydrOXYzine PAMOATE 25 MG CAPSULE (FP) PO SCH ×5 (06:18→21:41)
[2020-07-15] MEDS: PRENATAL VITAMINS W/ FOLIC ACID TABLET (FP) PO SCH (10:38)
[2020-07-15] MEDS: THIAMINE HCL 100 MG TABLET (FP) PO SCH (21:41)
[2020-07-15] MEDS: cloNIDine HCL 0.1 MG TABLET PO PRN (21:41)
[2020-07-15] MEDS: METHOCARBAMOL 500 MG TABLET PO PRN (21:41)
[2020-07-15] MEDS: MELATONIN 5 MG TABLETS PO SCH (21:42)
[2020-07-16] MEDS ORDERED: METHADONE HCL 5 MG TABLET ONE (03:22)
[2020-07-16] MEDS ORDERED: METHADONE HCL 40 MG DISPERSABLE TABLET ONE (03:22)
[2020-07-16] MEDS: hydrOXYzine PAMOATE 25 MG CAPSULE (FP) PO SCH ×5 (06:30→21:16)
[2020-07-16] MEDS: METHADONE 40 MG, METHADONE 5 MG PO SCH (06:30)
[2020-07-16] MEDS: PRENATAL VITAMINS W/ FOLIC ACID TABLET (FP) PO SCH (10:22)
[2020-07-16] MEDS: METHOCARBAMOL 500 MG TABLET PO PRN ×2 (10:23→21:16)
[2020-07-16] MEDS: THIAMINE HCL 100 MG TABLET (FP) PO SCH (21:16)
[2020-07-16] MEDS: cloNIDine HCL 0.1 MG TABLET PO PRN (21:16)
[2020-07-16] MEDS: MELATONIN 5 MG TABLETS PO SCH (21:16)
[2020-07-17] MEDS ORDERED: METHADONE HCL 5 MG TABLET ONE (04:01)
[2020-07-17] MEDS ORDERED: METHADONE HCL 40 MG DISPERSABLE TABLET ONE (04:01)
[2020-07-17] MEDS: METHADONE 40 MG, METHADONE 5 MG PO SCH (06:28)
[2020-07-17] MEDS: hydrOXYzine PAMOATE 25 MG CAPSULE (FP) PO SCH ×5 (06:28→21:22)
[2020-07-17] MEDS: PRENATAL VITAMINS W/ FOLIC ACID TABLET (FP) PO SCH (10:45)
--- NOTE | 2020-07-17 18:29 | CONSULT ---
[facility] Psychiatric Consult - Data Date of interview: 07/17/20 Admission source: [facility] Identifying data: Direct admission, on 07/12/20, to [address] from the community for this 39 y/o male presenting with JAYME issues (opioid, cocaine, cannabis, nicotine) co-morbid with MDD + Anxiety Disorder. 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 This is a revisit to [facility] (patient is already known to [facility] from an admission in 2017). Substance Abuse History: Discussed with the patient. JAYME profile as follows : Smoking history: Current every day smoker. Have you smoked in the past 12 months: Yes. Approximately how many cigarettes per day: 5. Cigars Per Day: 0. Hx Chewing Tobacco Use: No. Initiated information on smoking cessation: Yes. 'Breaking Loose' booklet given: 07/12/20. - Substance & Tx. History. Hx Alcohol Use: Yes. Hx Substance Use: Yes. Substance Use Type: Heroin, Marijuana, Prescribed. Hx Substance Use Treatment: Yes. Patient has reportedly been using IV heroin since age 34 (8-10 bags daily) + cocaine IV (spends 60-80 dollars daily) since age 35 + cannabis (5 dollars/day). Smokes five cigarettes daily. Patient is currently on methadone maintenance (45 mg/day) at the [facility] program in the [place]. History of five overdoses with heroin. Drinks 1-2 beers only occasionally (self-report). Medical History: Medical profile is remarkable for hepatitis C, weight loss, history of gastritis (self-report) and antecedent of orthosurgery (left foot in 2009). Psychiatric History: Patient endorses a history of multiple psychiatric hospitalizations ([facility] + [place] + [facility]). Last hospitalized at [facility] in 2012. Diagnosed with MDD and Anxiety Disorder. Mr Hubbard is known to [facility] but, due to current COVID-19 pandemic, he has not been able to " connect " with a psychiatrist for medication management. Records ([facility]) yield evidence of past treatment with trazodone + wellbutrin + gabapentin + risperdal. Patient also indicate previous care with paroxetine. Admits to a distant history of suicide attempt via self-mutilation (years ago). Physical/Sexual Abuse/Trauma History: Patient declines discussion of this domain. Additional Comment: Urine drug screen results: THC-Marijuana, NAS-Cocaine, FEN- Fentanyl, MOP-Opiates, MTD-Methadone. Noted. Mental Status Exam - Mental Status Exam Alert and Oriented to: Time, Place, Person Cognitive Function: Good Patient Appearance: Well Groomed (thin habitus) Mood: Nervous, Withdrawn, Hopeful Affect: Mood Congruent, Constricted Patient Behavior: Fatigued, Appropriate, Cooperative Speech Pattern: Clear, Appropriate Voice Loudness: Normal Thought Process: Intact, Goal Oriented Thought Disorder: Not Present Hallucinations: Denies Suicidal Ideation: Denies Homicidal Ideation: Denies Insight/Judgement: Fair Sleep: Poorly, Difficulty falling asleep Appetite: Poor, Weight loss Gait/Station: Normal Psychiatric Findings - Problem List ([place] 1, 2,3) (1) Opioid dependence on agonist therapy Current Visit: Yes Status: Chronic (2) Cannabis dependence Current Visit: Yes Status: Chronic (3) Cocaine dependence Current Visit: Yes Status: Chronic Qualifiers: Substance use status: uncomplicated Qualified Code(s): F14.20 - Cocaine dependence, uncomplicated (4) Nicotine dependence Current Visit: Yes Status: Chronic Qualifiers: Nicotine product type: cigarettes Substance use status: uncomplicated Qualified Code(s): F17.210 - Nicotine dependence, cigarettes, uncomplicated (5) Substance induced mood disorder Current Visit: Yes Status: Chronic (6) History of depression Current Visit: Yes Status: Chronic (7) Insomnia Current Visit: Yes Status: Chronic (8) Non-compliance Current Visit: Yes Status: Chronic Comment: Patient has been lost to psychiatric OPD care for months. - Initial Treatment Plan Initial Treatment Plan: Records ([facility]) revisited. Psychoeducation. Sleep hygiene. Motivational counseling. Support. Medications discussed with the patient. Several options of medications are offered. Mr Hubbard agrees to resume psychopharmacotherapy with wellbutrin XL 150 mg po daily + trazodone 50 mg po hs + zyprexa 2.5 mg po hs. Will observe response and titrate doses accordingly (in coordination with follow-up requests from medical providers). Side effects/benefits of these molecules are discussed, in detail, with the patient. Consent (verbal) granted to fitness consultant. Psychiatry-Liaison service will follow as needed.
[2020-07-17] MEDS: MELATONIN 5 MG TABLETS PO SCH (21:22)
[2020-07-17] MEDS: METHOCARBAMOL 500 MG TABLET PO PRN (21:22)
[2020-07-17] MEDS: cloNIDine HCL 0.1 MG TABLET PO PRN (21:22)
[2020-07-17] MEDS: THIAMINE HCL 100 MG TABLET (FP) PO SCH (21:22)
[2020-07-17] MEDS: traZODone HCL 50 MG TABLET (FP) PO SCH (21:22)
[2020-07-17] MEDS: OLANZapine 2.5 MG TABLET PO SCH (21:23)
[2020-07-18] MEDS ORDERED: METHADONE HCL 40 MG DISPERSABLE TABLET ONE (03:25)
[2020-07-18] MEDS ORDERED: METHADONE HCL 5 MG TABLET ONE (03:25)
[2020-07-18] MEDS: hydrOXYzine PAMOATE 25 MG CAPSULE (FP) PO SCH ×5 (06:30→21:16)
[2020-07-18] MEDS: METHADONE 40 MG, METHADONE 5 MG PO SCH (06:30)
[2020-07-18] MEDS: PRENATAL VITAMINS W/ FOLIC ACID TABLET (FP) PO SCH (10:21)
[2020-07-18] MEDS: traZODone HCL 50 MG TABLET (FP) PO SCH (21:15)
[2020-07-18] MEDS: cloNIDine HCL 0.1 MG TABLET PO PRN (21:15)
[2020-07-18] MEDS: METHOCARBAMOL 500 MG TABLET PO PRN (21:15)
[2020-07-18] MEDS: MELATONIN 5 MG TABLETS PO SCH (21:15)
[2020-07-18] MEDS: OLANZapine 2.5 MG TABLET PO SCH (21:15)
[2020-07-18] MEDS: THIAMINE HCL 100 MG TABLET (FP) PO SCH (21:15)
[2020-07-19] MEDS ORDERED: METHADONE HCL 5 MG TABLET ONE (04:00)
[2020-07-19] MEDS ORDERED: METHADONE HCL 40 MG DISPERSABLE TABLET ONE (04:00)
[2020-07-19] MEDS: METHADONE 40 MG, METHADONE 5 MG PO SCH (07:44)
[2020-07-19] MEDS: hydrOXYzine PAMOATE 25 MG CAPSULE (FP) PO SCH ×5 (07:45→21:33)
[2020-07-19] MEDS: PRENATAL VITAMINS W/ FOLIC ACID TABLET (FP) PO SCH (10:17)
[2020-07-19] MEDS: METHOCARBAMOL 500 MG TABLET PO PRN (21:11)
[2020-07-19] MEDS: OLANZapine 2.5 MG TABLET PO SCH (21:11)
[2020-07-19] MEDS: cloNIDine HCL 0.1 MG TABLET PO PRN (21:11)
[2020-07-19] MEDS: MELATONIN 5 MG TABLETS PO SCH (21:11)
[2020-07-19] MEDS: traZODone HCL 50 MG TABLET (FP) PO SCH (21:11)
[2020-07-19] MEDS: THIAMINE HCL 100 MG TABLET (FP) PO SCH (21:11)
[2020-07-20] MEDS ORDERED: METHADONE HCL 5 MG TABLET ONE (04:02)
[2020-07-20] MEDS ORDERED: METHADONE HCL 40 MG DISPERSABLE TABLET ONE (04:03)
[2020-07-20] MEDS: METHADONE 40 MG, METHADONE 5 MG PO SCH (06:30)
[2020-07-20] MEDS: hydrOXYzine PAMOATE 25 MG CAPSULE (FP) PO SCH ×5 (06:30→21:34)
[2020-07-20] MEDS: PRENATAL VITAMINS W/ FOLIC ACID TABLET (FP) PO SCH (10:25)
[2020-07-20] MEDS: traZODone HCL 50 MG TABLET (FP) PO SCH (21:34)
[2020-07-20] MEDS: THIAMINE HCL 100 MG TABLET (FP) PO SCH (21:34)
[2020-07-20] MEDS: cloNIDine HCL 0.1 MG TABLET PO PRN (21:34)
[2020-07-20] MEDS: MELATONIN 5 MG TABLETS PO SCH (21:34)
[2020-07-21] MEDS: OLANZapine 2.5 MG TABLET PO SCH ×2 (00:47→21:23)
[2020-07-21] MEDS ORDERED: METHADONE HCL 5 MG TABLET ONE (04:04)
[2020-07-21] MEDS ORDERED: METHADONE HCL 40 MG DISPERSABLE TABLET ONE (04:04)
[2020-07-21] MEDS: METHADONE 40 MG, METHADONE 5 MG PO SCH (06:34)
[2020-07-21] MEDS: hydrOXYzine PAMOATE 25 MG CAPSULE (FP) PO SCH ×5 (06:35→21:23)
[2020-07-21] MEDS: PRENATAL VITAMINS W/ FOLIC ACID TABLET (FP) PO SCH (09:42)
[2020-07-21] MEDS: METHOCARBAMOL 500 MG TABLET PO PRN (21:23)
[2020-07-21] MEDS: THIAMINE HCL 100 MG TABLET (FP) PO SCH (21:23)
[2020-07-21] MEDS: traZODone HCL 50 MG TABLET (FP) PO SCH (21:23)
[2020-07-21] MEDS: cloNIDine HCL 0.1 MG TABLET PO PRN (21:23)
[2020-07-21] MEDS: MELATONIN 5 MG TABLETS PO SCH (21:24)
[2020-07-22] MEDS ORDERED: METHADONE HCL 5 MG TABLET ONE (03:21)
[2020-07-22] MEDS ORDERED: METHADONE HCL 40 MG DISPERSABLE TABLET ONE (03:22)
[2020-07-22] MEDS: hydrOXYzine PAMOATE 25 MG CAPSULE (FP) PO SCH ×5 (06:34→21:20)
[2020-07-22] MEDS: METHADONE 40 MG, METHADONE 5 MG PO SCH (06:34)
[2020-07-22] MEDS: PRENATAL VITAMINS W/ FOLIC ACID TABLET (FP) PO SCH (10:22)
[2020-07-22] MEDS: METHOCARBAMOL 500 MG TABLET PO PRN (21:20)
[2020-07-22] MEDS: MELATONIN 5 MG TABLETS PO SCH (21:20)
[2020-07-22] MEDS: OLANZapine 2.5 MG TABLET PO SCH (21:20)
[2020-07-22] MEDS: traZODone HCL 50 MG TABLET (FP) PO SCH (21:20)
[2020-07-22] MEDS: cloNIDine HCL 0.1 MG TABLET PO PRN (21:20)
[2020-07-22] MEDS: THIAMINE HCL 100 MG TABLET (FP) PO SCH (21:20)
[2020-07-23] MEDS ORDERED: METHADONE HCL 5 MG TABLET ONE (03:15)
[2020-07-23] MEDS ORDERED: METHADONE HCL 40 MG DISPERSABLE TABLET ONE (03:15)
[2020-07-23] MEDS: METHADONE 40 MG, METHADONE 5 MG PO SCH (06:46)
[2020-07-23] MEDS: hydrOXYzine PAMOATE 25 MG CAPSULE (FP) PO SCH ×5 (06:46→21:18)
[2020-07-23] MEDS: PRENATAL VITAMINS W/ FOLIC ACID TABLET (FP) PO SCH (10:18)
[2020-07-23] MEDS: METHOCARBAMOL 500 MG TABLET PO PRN (21:18)
[2020-07-23] MEDS: traZODone HCL 50 MG TABLET (FP) PO SCH (21:18)
[2020-07-23] MEDS: OLANZapine 2.5 MG TABLET PO SCH (21:18)
[2020-07-23] MEDS: MELATONIN 5 MG TABLETS PO SCH (21:18)
[2020-07-23] MEDS: cloNIDine HCL 0.1 MG TABLET PO PRN (21:18)
[2020-07-23] MEDS: THIAMINE HCL 100 MG TABLET (FP) PO SCH (21:19)
[2020-07-24] MEDS ORDERED: METHADONE HCL 5 MG TABLET ONE (03:25)
[2020-07-24] MEDS ORDERED: METHADONE HCL 40 MG DISPERSABLE TABLET ONE (03:26)
[2020-07-24] MEDS: METHADONE 40 MG, METHADONE 5 MG PO SCH (06:49)
[2020-07-24] MEDS: hydrOXYzine PAMOATE 25 MG CAPSULE (FP) PO SCH ×5 (06:49→21:23)
[2020-07-24] MEDS: METHOCARBAMOL 500 MG TABLET PO PRN ×2 (10:18→21:22)
[2020-07-24] MEDS: PRENATAL VITAMINS W/ FOLIC ACID TABLET (FP) PO SCH (10:18)
[2020-07-24] MEDS: THIAMINE HCL 100 MG TABLET (FP) PO SCH (21:22)
[2020-07-24] MEDS: MELATONIN 5 MG TABLETS PO SCH (21:23)
[2020-07-24] MEDS: traZODone HCL 50 MG TABLET (FP) PO SCH (21:23)
[2020-07-24] MEDS: cloNIDine HCL 0.1 MG TABLET PO PRN (21:23)
[2020-07-24] MEDS: OLANZapine 2.5 MG TABLET PO SCH (21:55)
[2020-07-24] MEDS: MAG HYDROX/AL HYDROX/SIMETH 30 ML UNIT-DOSE CUP PO PRN (22:59)
[2020-07-25] MEDS ORDERED: METHADONE HCL 40 MG DISPERSABLE TABLET ONE (03:27)
[2020-07-25] MEDS ORDERED: METHADONE HCL 5 MG TABLET ONE (03:27)
[2020-07-25] MEDS: hydrOXYzine PAMOATE 25 MG CAPSULE (FP) PO SCH ×5 (08:35→21:27)
[2020-07-25] MEDS: METHADONE 40 MG, METHADONE 5 MG PO SCH (08:35)
[2020-07-25] MEDS: METHOCARBAMOL 500 MG TABLET PO PRN ×2 (10:15→21:27)
[2020-07-25] MEDS: PRENATAL VITAMINS W/ FOLIC ACID TABLET (FP) PO SCH (10:15)
[2020-07-25] MEDS: traZODone HCL 50 MG TABLET (FP) PO SCH (21:27)
[2020-07-25] MEDS: OLANZapine 2.5 MG TABLET PO SCH (21:27)
[2020-07-25] MEDS: THIAMINE HCL 100 MG TABLET (FP) PO SCH (21:27)
[2020-07-25] MEDS: MELATONIN 5 MG TABLETS PO SCH (21:27)
[2020-07-25] MEDS: cloNIDine HCL 0.1 MG TABLET PO PRN (21:27)
[2020-07-26] MEDS ORDERED: METHADONE HCL 5 MG TABLET ONE (03:52)
[2020-07-26] MEDS ORDERED: METHADONE HCL 40 MG DISPERSABLE TABLET ONE (03:52)
[2020-07-26] MEDS: METHADONE 40 MG, METHADONE 5 MG PO SCH (06:43)
[2020-07-26] MEDS: hydrOXYzine PAMOATE 25 MG CAPSULE (FP) PO SCH ×2 (06:44→09:33)
[2020-07-26 06:50] VITALS: BP 110/65; PULSE 51; TEMP 97.5
--- NOTE | 2020-07-26 09:06 | PN ---
[facility] Progress Note Note: Patient is scheduled for discharge today. Scriopts for 30 days supply of medications(Wellbutrin XL 150 mg/day, Trazadone 50 mg/hs, Zyprexa 2.5 mg/hs) are electronically transmitted to [facility], [address] [place], [place] [address]
[2020-07-26] MEDS: PRENATAL VITAMINS W/ FOLIC ACID TABLET (FP) PO SCH (09:32)
--- NOTE | 2020-07-26 10:14 | DS ---
[facility] Rehab Discharge Summary - [facility] Rehab Discharge Summary Admission Date: 07/12/20 Discharge Date: 07/26/20 - History Present History: Cannabis dependence, Cocaine dependence, MMTP, Sedative dependence Pertinent Past History: GERD Weight Loss Hx Depression - Discharge Physical Exam Vital Signs: Vital Signs Temperature 97.5 F L 07/26/20 06:37 Pulse Rate 51 L 07/26/20 06:37 Respiratory Rate 18 07/26/20 06:37 Blood Pressure 110/65 07/26/20 06:37 O2 Sat by Pulse Oximetry (%) 97 07/26/20 06:37 General;WDWN slim appearing male, Alert o x 3, nad Cardiac:s1 s2,rrr lungs:ctab abdomen:soft,flat, +bs,nt,nd MSK/Skin:Active FROM, all limbs; oob ambulating with steady gait; no edema, skin intact. Pertinent Admission Physical Exam Findings: Laboratory Tests 07/12/20 07/13/20 07/13/20 14:30 07:50 07:50 WBC 4.5 RBC 3.74 L Hgb 11.6 L Hct 35.5 MCV 94.8 MCH 31.0 MCHC 32.7 RDW 14.6 D Plt Count 187 D MPV 8.5 Sodium 139 Potassium 4.1 Chloride 105 Carbon Dioxide 28 Anion Gap 5 L BUN 18.2 H Creatinine 0.8 Est GFR (CKD-EPI)AfAm 131.34 Est GFR (CKD-EPI)NonAf 113.32 Random Glucose 77 Calcium 8.8 Total Bilirubin 0.7 AST 53 H ALT 62 H Alkaline Phosphatase 83 Total Protein 7.6 Albumin 3.0 L Urine Color Urine Appearance Urine pH Ur Specific [place] Urine Protein Urine Glucose (UA) Urine Ketones Urine Blood Urine Nitrite Urine Bilirubin Urine Urobilinogen Ur Leukocyte Esterase Syphilis Serology SARS-CoV-2 (PCR) Negative 07/13/20 07/14/20 07:50 13:58 WBC RBC Hgb Hct MCV MCH MCHC RDW Plt Count MPV Sodium Potassium Chloride Carbon Dioxide Anion Gap BUN Creatinine Est GFR (CKD-EPI)AfAm Est GFR (CKD-EPI)NonAf Random Glucose Calcium Total Bilirubin AST ALT Alkaline Phosphatase Total Protein Albumin Urine Color Yellow Urine Appearance Clear Urine pH 7.5 D Ur Specific [place] 1.014 Urine Protein Negative Urine Glucose (UA) Negative Urine Ketones Negative Urine Blood Negative Urine Nitrite Negative Urine Bilirubin Negative Urine Urobilinogen 0.2 Ur Leukocyte Esterase Negative Syphilis Serology Non-reactive SARS-CoV-2 (PCR) - Treatment Discharge Condition: Discharge condition good, Rehabilitated safely, Responded well, Outpatient referral accepted Hospital Course: Pt is a 39 y/o male admitted to rehab and discharged today after completion. CD aftercare referral accepted to [facility] Out program - Medication Discharge Medications: Ambulatory Orders Bupropion HCl [Wellbutrin Xl -] 150 mg PO DAILY #30 tab.sr.24h 07/26/20 Olanzapine [Zyprexa -] 2.5 mg PO HS #30 tablet 07/26/20 traZODone HCL [Desyrel -] 50 mg PO HS #30 tablet 07/26/20 - Medication-Assisted Treatment (MAT) Medication-Assisted Treatment (MAT): No - Discharge Instructions Diet, activity, other medical instructions: Diet:Regular Activity: oob ad quan Other medical instructions:f/u with PCP at [facility] as needed for medical management - Diagnosis (1) Alcohol use disorder Status: Chronic (2) Weight loss Status: Acute (3) Cannabis dependence Status: Chronic (4) Cocaine dependence Status: Chronic Qualifiers: Substance use status: uncomplicated Qualified Code(s): F14.20 - Cocaine dependence, uncomplicated (5) GERD (gastroesophageal reflux disease) Status: Chronic Qualifiers: Esophagitis presence: without esophagitis Qualified Code(s): K21.9 - Gastro-esophageal reflux disease without esophagitis (6) Methadone maintenance therapy patient Status: Chronic (7) Nicotine dependence Status: Chronic Qualifiers: Nicotine product type: cigarettes Substance use status: uncomplicated Qualified Code(s): F17.210 - Nicotine dependence, cigarettes, uncomplicated - Follow-up Referral Minutes to complete discharge: 25 - AMA Did Patient Leave Against Medical Advice: No
== END 2020-07-26 10:00 | disposition home or self-care (01) | DRG 772 ==
LOC: YASAS 14:00 → Y5N 17:10
PROVIDERS: ADMIT Allergy & Immunology; ATTEND Allergy & Immunology
PROC: HZ42ZZZ Group Counseling for Substance Abuse Treatment, Cognitive-Behavioral (ICD-10-PCS; principal; 2020-07-12)
DX: F11.20 Opioid dependence, uncomplicated (principal); F10.20 Alcohol dependence, uncomplicated; F14.20 Cocaine dependence, uncomplicated; F13.20 Sedative, hypnotic or anxiolytic dependence, uncomplicated; F12.20 Cannabis dependence, uncomplicated; F17.210 Nicotine dependence, cigarettes, uncomplicated; F19.24 Other psychoactive substance dependence with psychoactive substance-induced mood disorder; F41.9 Anxiety disorder, unspecified; F32.9 Major depressive disorder, single episode, unspecified; K21.9 Gastro-esophageal reflux disease without esophagitis; R63.4 Abnormal weight loss; Z68.21 Body mass index [BMI] 21.0-21.9, adult; Z56.0 Unemployment, unspecified; Z91.19 Patient's noncompliance with other medical treatment and regimen
CPT/HCPCS: 36415; 80053; 81003; 85027; 86780; J0735; U0003

== ENCOUNTER 2021-07-14 15:44 | Inpatient (IN) | payer OTHER ==
[2021-07-14] MEDS ORDERED: MAGNESIUM CITRATE 300 ML BOTTLE PO PRN (18:25)
[2021-07-14] MEDS ORDERED: IBUPROFEN 400 MG TABLET (FP) PO PRN (18:25)
[2021-07-14] MEDS ORDERED: LOPERAMIDE HCL 2 MG CAPSULE PO PRN (18:25)
[2021-07-14] MEDS ORDERED: MAG HYDROX/AL HYDROX/SIMETH 30 ML UNIT-DOSE CUP PO PRN (18:25)
[2021-07-14] MEDS ORDERED: P-EPHED 60MG/TRIPROLIDI 2.5MG TABLET PO PRN (18:25)
[2021-07-14] MEDS ORDERED: guaiFENesin 200 MG/10 ML 10 ML UNIT-DOSE CUPS PO PRN (18:25)
[2021-07-14 21:34] VITALS: BMI 18.1
[2021-07-14] MEDS ORDERED: traZODone HCL 50 MG TABLET (FP) PO ONE (21:38)
[2021-07-14] MEDS ORDERED: TUBERCULIN PPD 5 TU/0.1ML VIAL ID ONE (22:35)
[2021-07-14] MEDS: MELATONIN 5 MG TABLETS PO SCH (22:37)
[2021-07-14] MEDS: THIAMINE HCL 100 MG TABLET (FP) PO SCH (22:37)
[2021-07-15] MEDS ORDERED: methaDONE HCL 10 MG TABLET PO SCH (08:45)
[2021-07-15] MEDS ORDERED: methaDONE 40 MG, methaDONE 30 MG PO ONE (09:00)
[2021-07-15] MEDS ORDERED: methaDONE HCL 10 MG TABLET ONE (09:10)
[2021-07-15] MEDS ORDERED: methaDONE HCL 40 MG DISPERSABLE TABLET ONE (09:10)
[2021-07-15] MEDS: ACETAMINOPHEN 325 MG TABLET (FP) PO PRN (09:44)
[2021-07-15] MEDS: PRENATAL VITAMINS W/ FOLIC ACID TABLET (FP) PO SCH (09:44)
[2021-07-15] MEDS: NICOTINE 10 MG CARTRIDGE (INHALER) IH PRN (09:48)
[2021-07-15 13:25] LABS: EPI CELLS 1 /uL (0-25.1); HYALINE CASTS 1 /uL (0-3.1); URINE APPEARANCE CLEAR; URINE BACTERIA 2 /uL (0-1359); URINE BILIRUBIN NEGATIVE (NEGATIVE); URINE COLOR YELLOW; URINE GLUCOSE (UA) NEGATIVE (NEGATIVE); URINE KETONE NEGATIVE (NEGATIVE); URINE LEUK ESTERASE NEGATIVE (NEGATIVE); URINE NITRITE NEGATIVE (NEGATIVE); URINE PROTEIN NEGATIVE (NEGATIVE); URINE RBC 4 /uL (0-23.9); URINE UROBILINOGEN 0.2 mg/dL (0.2-1.0); URINE WBC 2 /uL (0-25.8)
[2021-07-15] MEDS: MELATONIN 5 MG TABLETS PO SCH (21:10)
[2021-07-15] MEDS: traZODone HCL 50 MG TABLET (FP) PO SCH (21:10)
[2021-07-15] MEDS: THIAMINE HCL 100 MG TABLET (FP) PO SCH (21:10)
[2021-07-16] MEDS ORDERED: methaDONE HCL 10 MG TABLET ONE (06:02)
[2021-07-16] MEDS ORDERED: methaDONE HCL 40 MG DISPERSABLE TABLET ONE (06:03)
[2021-07-16] MEDS: methaDONE 40 MG, methaDONE 30 MG PO SCH (06:28)
[2021-07-16] MEDS: PRENATAL VITAMINS W/ FOLIC ACID TABLET (FP) PO SCH (09:41)
[2021-07-16 10:34] LABS: HEMATOCRIT 36.3 % (35.4-49); HEMOGLOBIN 12.3 GM/dL (11.7-16.9); MCH 33.3 pg (25.7-33.7); MEAN CELL VOLUME 97.9 fl (80-96); MEAN PLT VOLUME 8.1 fl (7.5-11.1); PLATELET COUNT 389 10^3/uL (134-434); RDW 13.5 % (11.9-15.9); WHITE BLOOD COUNT 4.1 K/mm3 (4.0-10.0)
[2021-07-16 10:53] LABS: ALBUMIN 3.1 g/dl (3.4-5.0); CALCIUM 9.6 mg/dL (8.5-10.1)
[2021-07-16 10:56] LABS: BILIRUBIN,TOTAL 0.5 mg/dL (0.2-1)
[2021-07-16 10:57] LABS: CREATININE 0.9 mg/dL (0.55-1.3)
[2021-07-16] MEDS: ACETAMINOPHEN 325 MG TABLET (FP) PO PRN (17:27)
[2021-07-16] MEDS: MELATONIN 5 MG TABLETS PO SCH (21:10)
[2021-07-16] MEDS: THIAMINE HCL 100 MG TABLET (FP) PO SCH (21:10)
[2021-07-16] MEDS: traZODone HCL 50 MG TABLET (FP) PO SCH (21:10)
[2021-07-17] MEDS ORDERED: methaDONE HCL 40 MG DISPERSABLE TABLET ONE (03:05)
[2021-07-17] MEDS ORDERED: methaDONE HCL 10 MG TABLET ONE (03:05)
[2021-07-17] MEDS: methaDONE 40 MG, methaDONE 30 MG PO SCH (07:23)
[2021-07-17] MEDS: PRENATAL VITAMINS W/ FOLIC ACID TABLET (FP) PO SCH (09:50)
[2021-07-17] MEDS: THIAMINE HCL 100 MG TABLET (FP) PO SCH (21:06)
[2021-07-17] MEDS: traZODone HCL 50 MG TABLET (FP) PO SCH (21:07)
[2021-07-17] MEDS: MELATONIN 5 MG TABLETS PO SCH (21:08)
[2021-07-18] MEDS ORDERED: methaDONE HCL 40 MG DISPERSABLE TABLET ONE (03:23)
[2021-07-18] MEDS ORDERED: methaDONE HCL 10 MG TABLET ONE (03:23)
[2021-07-18] MEDS: methaDONE 40 MG, methaDONE 30 MG PO SCH (06:29)
[2021-07-18] MEDS: PRENATAL VITAMINS W/ FOLIC ACID TABLET (FP) PO SCH (09:32)
[2021-07-18] MEDS: ALBUTEROL SO4 HFA INHALER IH PRN ×2 (09:34→21:43)
[2021-07-18] MEDS: ACETAMINOPHEN 325 MG TABLET (FP) PO PRN (19:19)
[2021-07-18] MEDS: THIAMINE HCL 100 MG TABLET (FP) PO SCH (21:14)
[2021-07-18] MEDS: traZODone HCL 50 MG TABLET (FP) PO SCH (21:14)
[2021-07-18] MEDS: MELATONIN 5 MG TABLETS PO SCH (21:15)
[2021-07-19] MEDS ORDERED: methaDONE HCL 10 MG TABLET ONE (03:12)
[2021-07-19] MEDS ORDERED: methaDONE HCL 40 MG DISPERSABLE TABLET ONE (03:12)
[2021-07-19] MEDS: methaDONE 40 MG, methaDONE 30 MG PO SCH (06:25)
[2021-07-19] MEDS: NICOTINE 10 MG CARTRIDGE (INHALER) IH PRN ×2 (06:27→09:47)
[2021-07-19] MEDS: PRENATAL VITAMINS W/ FOLIC ACID TABLET (FP) PO SCH (09:46)
[2021-07-19] MEDS: ACETAMINOPHEN 325 MG TABLET (FP) PO PRN (09:48)
[2021-07-19] MEDS: ALBUTEROL SO4 HFA INHALER IH PRN (09:48)
[2021-07-19] MEDS: traZODone HCL 50 MG TABLET (FP) PO SCH (21:16)
[2021-07-19] MEDS: THIAMINE HCL 100 MG TABLET (FP) PO SCH (21:16)
[2021-07-19] MEDS: MELATONIN 5 MG TABLETS PO SCH (21:17)
[2021-07-20] MEDS ORDERED: methaDONE HCL 40 MG DISPERSABLE TABLET ONE (04:06)
[2021-07-20] MEDS ORDERED: methaDONE HCL 10 MG TABLET ONE (04:06)
[2021-07-20] MEDS: methaDONE 40 MG, methaDONE 30 MG PO SCH (06:16)
[2021-07-20] MEDS: PRENATAL VITAMINS W/ FOLIC ACID TABLET (FP) PO SCH (09:38)
[2021-07-20] MEDS: ALBUTEROL SO4 HFA INHALER IH PRN ×2 (09:38→21:07)
[2021-07-20] MEDS: NICOTINE 10 MG CARTRIDGE (INHALER) IH PRN (09:40)
[2021-07-20] MEDS: ACETAMINOPHEN 325 MG TABLET (FP) PO PRN (09:40)
[2021-07-20] MEDS: THIAMINE HCL 100 MG TABLET (FP) PO SCH (21:05)
[2021-07-20] MEDS: traZODone HCL 50 MG TABLET (FP) PO SCH (21:08)
[2021-07-20] MEDS: MELATONIN 5 MG TABLETS PO SCH (21:08)
[2021-07-21] MEDS ORDERED: methaDONE HCL 40 MG DISPERSABLE TABLET ONE (02:27)
[2021-07-21] MEDS ORDERED: methaDONE HCL 10 MG TABLET ONE (02:27)
[2021-07-21] MEDS: methaDONE 40 MG, methaDONE 30 MG PO SCH (06:46)
[2021-07-21] MEDS: PRENATAL VITAMINS W/ FOLIC ACID TABLET (FP) PO SCH (09:27)
[2021-07-21] MEDS: ALBUTEROL SO4 HFA INHALER IH PRN ×2 (09:28→22:14)
[2021-07-21] MEDS: MELATONIN 5 MG TABLETS PO SCH (22:11)
[2021-07-21] MEDS: traZODone HCL 50 MG TABLET (FP) PO SCH (22:11)
[2021-07-21] MEDS: THIAMINE HCL 100 MG TABLET (FP) PO SCH (22:12)
[2021-07-21] MEDS: MAGNESIUM HYDROX 2400MG/30ML ORAL SUSPENSION 30 ML CUP PO PRN (22:14)
[2021-07-22] MEDS ORDERED: methaDONE HCL 10 MG TABLET ONE (03:25)
[2021-07-22] MEDS ORDERED: methaDONE HCL 40 MG DISPERSABLE TABLET ONE (03:25)
[2021-07-22] MEDS: methaDONE 40 MG, methaDONE 30 MG PO SCH (06:23)
[2021-07-22] MEDS: PRENATAL VITAMINS W/ FOLIC ACID TABLET (FP) PO SCH (09:32)
[2021-07-22] MEDS: ALBUTEROL SO4 HFA INHALER IH PRN ×2 (09:34→21:42)
[2021-07-22] MEDS: MELATONIN 5 MG TABLETS PO SCH (21:41)
[2021-07-22] MEDS: THIAMINE HCL 100 MG TABLET (FP) PO SCH (21:41)
[2021-07-22] MEDS: traZODone HCL 50 MG TABLET (FP) PO SCH (21:42)
[2021-07-22] MEDS: MAGNESIUM HYDROX 2400MG/30ML ORAL SUSPENSION 30 ML CUP PO PRN (21:42)
[2021-07-23] MEDS ORDERED: methaDONE HCL 10 MG TABLET PO SCH (06:00)
[2021-07-23] MEDS ORDERED: methaDONE HCL 10 MG TABLET ONE (06:13)
[2021-07-23] MEDS ORDERED: methaDONE HCL 40 MG DISPERSABLE TABLET ONE (06:14)
[2021-07-23] MEDS: methaDONE 40 MG, methaDONE 30 MG PO SCH (06:14)
[2021-07-23] MEDS: ALBUTEROL SO4 HFA INHALER IH PRN ×2 (09:42→21:10)
[2021-07-23] MEDS: PRENATAL VITAMINS W/ FOLIC ACID TABLET (FP) PO SCH (09:42)
[2021-07-23] MEDS: MAGNESIUM HYDROX 2400MG/30ML ORAL SUSPENSION 30 ML CUP PO PRN (13:19)
[2021-07-23] MEDS: traZODone HCL 50 MG TABLET (FP) PO SCH (21:10)
[2021-07-23] MEDS: THIAMINE HCL 100 MG TABLET (FP) PO SCH (21:10)
[2021-07-23] MEDS: MELATONIN 5 MG TABLETS PO SCH (21:10)
[2021-07-24] MEDS ORDERED: methaDONE HCL 10 MG TABLET ONE (03:00)
[2021-07-24] MEDS ORDERED: methaDONE HCL 40 MG DISPERSABLE TABLET ONE (03:00)
[2021-07-24] MEDS: methaDONE 40 MG, methaDONE 30 MG PO SCH (06:22)
[2021-07-24] MEDS: PRENATAL VITAMINS W/ FOLIC ACID TABLET (FP) PO SCH (09:39)
[2021-07-24] MEDS: traZODone HCL 50 MG TABLET (FP) PO SCH (22:01)
[2021-07-24] MEDS: THIAMINE HCL 100 MG TABLET (FP) PO SCH (22:01)
[2021-07-24] MEDS: MELATONIN 5 MG TABLETS PO SCH (22:01)
[2021-07-24] MEDS: ALBUTEROL SO4 HFA INHALER IH PRN (22:02)
[2021-07-25] MEDS ORDERED: methaDONE HCL 10 MG TABLET ONE (05:22)
[2021-07-25] MEDS ORDERED: methaDONE HCL 40 MG DISPERSABLE TABLET ONE (05:23)
[2021-07-25] MEDS: methaDONE 40 MG, methaDONE 30 MG PO SCH (06:30)
[2021-07-25] MEDS: PRENATAL VITAMINS W/ FOLIC ACID TABLET (FP) PO SCH (09:42)
[2021-07-25] MEDS: ALBUTEROL SO4 HFA INHALER IH PRN (22:00)
[2021-07-25] MEDS: THIAMINE HCL 100 MG TABLET (FP) PO SCH (22:01)
[2021-07-25] MEDS: traZODone HCL 50 MG TABLET (FP) PO SCH (22:01)
[2021-07-25] MEDS: MELATONIN 5 MG TABLETS PO SCH (22:02)
[2021-07-26] MEDS ORDERED: methaDONE HCL 40 MG DISPERSABLE TABLET ONE (03:49)
[2021-07-26] MEDS ORDERED: methaDONE HCL 10 MG TABLET ONE (03:49)
[2021-07-26] MEDS: methaDONE 40 MG, methaDONE 30 MG PO SCH (06:13)
[2021-07-26] MEDS: NICOTINE 10 MG CARTRIDGE (INHALER) IH PRN (06:15)
[2021-07-26] MEDS: PRENATAL VITAMINS W/ FOLIC ACID TABLET (FP) PO SCH (09:29)
[2021-07-26] MEDS: THIAMINE HCL 100 MG TABLET (FP) PO SCH (21:05)
[2021-07-26] MEDS: traZODone HCL 50 MG TABLET (FP) PO SCH (21:05)
[2021-07-26] MEDS: MELATONIN 5 MG TABLETS PO SCH (21:05)
[2021-07-26] MEDS: ALBUTEROL SO4 HFA INHALER IH PRN (21:06)
[2021-07-27] MEDS ORDERED: methaDONE HCL 40 MG DISPERSABLE TABLET ONE (02:04)
[2021-07-27] MEDS ORDERED: methaDONE HCL 10 MG TABLET ONE (02:04)
[2021-07-27] MEDS: methaDONE 40 MG, methaDONE 30 MG PO SCH (06:46)
[2021-07-27] MEDS: PRENATAL VITAMINS W/ FOLIC ACID TABLET (FP) PO SCH (09:46)
[2021-07-27] MEDS: MELATONIN 5 MG TABLETS PO SCH (21:09)
[2021-07-27] MEDS: traZODone HCL 50 MG TABLET (FP) PO SCH (21:09)
[2021-07-27] MEDS: THIAMINE HCL 100 MG TABLET (FP) PO SCH (21:09)
[2021-07-28] MEDS ORDERED: methaDONE HCL 40 MG DISPERSABLE TABLET ONE (02:44)
[2021-07-28] MEDS ORDERED: methaDONE HCL 10 MG TABLET ONE (02:44)
[2021-07-28] MEDS: methaDONE 40 MG, methaDONE 30 MG PO SCH (06:14)
[2021-07-28 07:06] VITALS: BP 115/67; PULSE 57; TEMP 97.2
[2021-07-28] MEDS ORDERED: PT OWN MED DRAWER 7, Y5N ONE (08:25)
[2021-07-28] MEDS: PRENATAL VITAMINS W/ FOLIC ACID TABLET (FP) PO SCH (09:48)
== END 2021-07-28 10:05 | disposition home or self-care (01) | DRG 772 ==
LOC: YASAS 15:44 → Y5N 21:11
PROVIDERS: ADMIT Allergy & Immunology; ATTEND Allergy & Immunology
PROC: HZ42ZZZ Group Counseling for Substance Abuse Treatment, Cognitive-Behavioral (ICD-10-PCS; principal; 2021-07-14)
DX: F10.20 Alcohol dependence, uncomplicated (principal); F11.20 Opioid dependence, uncomplicated; F14.20 Cocaine dependence, uncomplicated; F12.20 Cannabis dependence, uncomplicated; F17.210 Nicotine dependence, cigarettes, uncomplicated; F19.24 Other psychoactive substance dependence with psychoactive substance-induced mood disorder; F32.9 Major depressive disorder, single episode, unspecified; G47.00 Insomnia, unspecified; K21.9 Gastro-esophageal reflux disease without esophagitis; M54.50 Low back pain, unspecified; G89.29 Other chronic pain; R06.2 Wheezing; R63.4 Abnormal weight loss; Z68.1 Body mass index [BMI] 19.9 or less, adult; Z56.0 Unemployment, unspecified
CPT/HCPCS: 36415; 80053; 81003; 85027; 86780; 93005; 93010; C9803; U0003; U0005

== ENCOUNTER 2024-12-27 17:16 | Inpatient (IN) | payer OTHER ==
[2024-12-27 17:42] VITALS: BMI 20.9
[2024-12-27] MEDS ORDERED: BISMUTH SUBSALICYLATE 524 MG/30 ML PO PRN (19:13)
[2024-12-27] MEDS ORDERED: IBUPROFEN 400 MG TABLET (FP) PO PRN (19:13)
[2024-12-27] MEDS ORDERED: ONDANSETRON *ODT* 4 MG TABLET SL PRN (19:13)
[2024-12-27] MEDS ORDERED: BENZOCAINE/MENTHOL (CHLORASEPTIC ) LOZENGE MM PRN (19:13)
[2024-12-27] MEDS ORDERED: NALOXONE (NARCAN) HCL 4 MG/0.1 ML SPRAY NS PRN (19:13)
[2024-12-27] MEDS ORDERED: MAGNESIUM HYDROX 2400MG/30ML ORAL SUSPENSION 30 ML CUP PO PRN (19:13)
[2024-12-27] MEDS ORDERED: guaiFENesin 600 MG TABLET.ER (FP) PO PRN (19:13)
[2024-12-27] MEDS ORDERED: ACETAMINOPHEN 325 MG TABLET (FP) PO PRN (19:13)
[2024-12-27] MEDS ORDERED: LOPERAMIDE HCL 2 MG CAPSULE PO PRN (19:13)
[2024-12-27] MEDS ORDERED: MAG HYDROX/AL HYDROX/SIMETH 30 ML UNIT-DOSE CUP PO PRN (19:13)
[2024-12-27] MEDS ORDERED: BENZONATATE 200 MG CAPSULE PO PRN (19:13)
[2024-12-27] MEDS ORDERED: NICOTINE POLACRILEX 2 MG GUM BUC PRN (19:13)
[2024-12-27] MEDS ORDERED: METHOCARBAMOL 500 MG TABLET PO PRN (19:13)
[2024-12-27] MEDS ORDERED: POLYETHYLENE GLYCOL (HEALTHYLAX) 3350 17 GM PACKET PO PRN (19:13)
[2024-12-27] MEDS ORDERED: DICYCLOMINE HCL 10 MG CAPSULE PO PRN (19:13)
[2024-12-27] MEDS: MELATONIN 5 MG TABLETS PO SCH (22:40)
[2024-12-27] MEDS: THIAMINE 100 MG TABLET PO SCH (22:40)
[2024-12-28] MEDS: hydrOXYzine PAMOATE 25 MG CAPSULE (FP) PO PRN (05:54)
[2024-12-28] MEDS ORDERED: diazePAM 5 MG TABLET PO PRN (08:38)
[2024-12-28] MEDS: methaDONE HCL 10 MG TABLET PO ONE (09:35)
[2024-12-28] MEDS: methaDONE HCL 40 MG DISPERSABLE TABLET PO ONE (09:54)
[2024-12-28] MEDS: PRENATAL VITAMINS W/ FOLIC ACID TABLET (FP) PO SCH (09:57)
[2024-12-28] MEDS: cloNIDine HCL 0.1 MG TABLET PO SCH (09:57)
[2024-12-28] MEDS: BICTEGRAV/EMTRICIT/TENOFOV (BIKTARVY) 50-200-25 MG TABLET PO SCH (09:59)
[2024-12-28 11:34] LABS: CHLORIDE 105 mmol/L (98-107); POTASSIUM 4.1 mmol/L (3.5-5.1); SODIUM 138 mmol/L (136-145)
[2024-12-28 11:35] LABS: HEMATOCRIT 32.9 % (35.4-49); MCH 31.8 pg (25.7-33.7); MCHC 33.5 g/dl (32.0-35.9); MEAN CELL VOLUME 94.9 fl (80-96); MEAN PLT VOLUME 8.3 fl (7.5-11.1); PLATELET COUNT 181 10^3/uL (134-434); RBC 3.47 M/mm3 (4.00-5.60); WHITE BLOOD COUNT 5.9 K/mm3 (4.0-10.0)
[2024-12-28] MEDS: diazePAM 5 MG TABLET PO SCH (11:35)
[2024-12-28 11:43] LABS: CALCIUM 9.1 mg/dL (8.5-10.1); GLUCOSE,RANDOM 93 mg/dL (74-106)
[2024-12-28 11:45] LABS: ANION GAP 5 mmol/L (4-13); CO2 28 mmol/L (21-32)
[2024-12-28 11:47] LABS: CREATININE 0.9 mg/dL (0.55-1.3); SGOT/AST 16 U/L (15-37); SGPT/ALT 12 U/L (13-61)
[2024-12-28 11:49] LABS: BILIRUBIN,TOTAL 0.4 mg/dL (0.2-1); TOT PROT 7.8 g/dl (6.4-8.2)
[2024-12-28 11:50] LABS: ALK PHOS 81 U/L (45-117)
[2024-12-28] MEDS ORDERED: NICOTINE POLACRILEX 2 MG LOZENGE BC PRN (15:32)
[2024-12-29] MEDS: methaDONE HCL 40 MG DISPERSABLE TABLET PO SCH (05:44)
[2024-12-29] MEDS: methaDONE HCL 10 MG TABLET PO ONE (10:21)
[2024-12-29] MEDS: IBUPROFEN 600 MG TABLET (FP) PO PRN (10:25)
[2024-12-29 13:06] VITALS: RESP 16
[2024-12-29 17:09] VITALS: BP 106/63; PULSE 61; TEMP 97.7
[2024-12-30] MEDS ORDERED: cloNIDine HCL 0.1 MG TABLET PO PRN
[2024-12-30] MEDS ORDERED: diazePAM 5 MG TABLET PO SCH (06:00)
[2024-12-30] MEDS ORDERED: methaDONE HCL 10 MG TABLET PO ONE (10:00)
[2024-12-31] MEDS ORDERED: diazePAM 5 MG TABLET PO SCH (06:00)
[2024-12-31] MEDS ORDERED: methaDONE HCL 40 MG DISPERSABLE TABLET PO ONE (10:00)
[2025-01-01] MEDS ORDERED: diazePAM 5 MG TABLET PO ONE (06:00)
[2025-01-01] MEDS ORDERED: methaDONE HCL 40 MG DISPERSABLE TABLET PO ONE (10:00)
[2025-01-02] MEDS ORDERED: methaDONE HCL 40 MG DISPERSABLE TABLET PO ONE (10:00)
== END 2024-12-29 17:43 | disposition left against medical advice (07) | DRG 770 ==
LOC: YASAS 17:16 → Y3N 19:55
PROVIDERS: ADMIT Allergy & Immunology; ATTEND Allergy & Immunology
PROC: HZ2ZZZZ Detoxification Services for Substance Abuse Treatment (ICD-10-PCS; principal; 2024-12-27)
DX: F11.23 Opioid dependence with withdrawal (principal); F13.230 Sedative, hypnotic or anxiolytic dependence with withdrawal, uncomplicated; F14.20 Cocaine dependence, uncomplicated; F17.210 Nicotine dependence, cigarettes, uncomplicated; F32.A Depression, unspecified; Z21 Asymptomatic human immunodeficiency virus [HIV] infection status; Z79.899 Other long term (current) drug therapy
CPT/HCPCS: 36415; 80053; 80305; 80307; 85027; 86780; 93005; 93010